=== PATIENT | male | born 1970 | race Caucasian/White ===

== ENCOUNTER → 2019-09-03 | Outpatient (REF) | payer MEDICAID ==
[2019-09-03 13:43] LABS: BASO # 0.1 10^3/uL (0.0-0.2); BASO % 1.3 % (0.0-1.0); EOS # 0.1 10^3/uL (0.0-0.5); EOS % 1.7 % (0.0-3.0); HEMATOCRIT 47.6 % (42.0-52.0); HEMOGLOBIN 15.8 g/dl (13.5-17.5); LYMPH % 21.2 % (24.0-44.0); MEAN CORPUSCULAR HEMOGLOBIN 32.2 pg (27.0-33.0); MEAN CORPUSCULAR HGB CONC 33.2 g/dl (32.0-36.5); MEAN CORPUSCULAR VOLUME 96.9 fl (80.0-96.0); MONO # 0.4 10^3/uL (0.0-0.8); MONO % 9.5 % (0.0-5.0); NEUTROPHILS # 3.1 10^3/uL (1.5-8.5); NEUTROPHILS % 66.1 % (36.0-66.0); PLATELET COUNT, AUTOMATED 199 10^3/uL (150-450); RED BLOOD COUNT 4.91 10^6/uL (4.30-6.10); WHITE BLOOD COUNT 4.6 10^3/uL (4.0-10.0)
[2019-09-03 14:00] LABS: ALBUMIN 3.4 GM/DL (3.2-5.2); ALT/SGPT 55 U/L (12-78); BILIRUBIN,TOTAL 0.6 MG/DL (0.2-1.0); BLOOD UREA NITROGEN 14 MG/DL (7-18); CALCIUM LEVEL 8.6 MG/DL (8.5-10.1); CARBON DIOXIDE LEVEL 27 MEQ/L (21-32); CHLORIDE LEVEL 109 MEQ/L (98-107); CHOLESTEROL LEVEL 182 MG/DL (<200); CHOLESTEROL RISK RATIO 2.716 (<5); CREATININE FOR GFR 0.89 MG/DL (0.70-1.30); FREE T4 0.81 NG/DL (0.76-1.46); GLOMERULAR FILTRATION RATE > 60.0 (>56); GLUCOSE, FASTING 91 MG/DL (70-100); HDL CHOLESTEROL 67 MG/DL (>40); LDL CHOLESTEROL 104 MG/DL (<100); NON-HDL-C 115 MG/DL; POTASSIUM SERUM 4.1 MEQ/L (3.5-5.1); SODIUM LEVEL 145 MEQ/L (136-145); TESTOSTERONE 1166 NG/DL (241-827); TOTAL 25(OH) VITAMIN D 20.7 NG/ML (30.0-100.0); TOTAL PROTEIN 6.5 GM/DL (6.4-8.2); TRIGLYCERIDES LEVEL 56 MG/DL (<150)
[2019-09-03 14:44] LABS: HEMOGLOBIN A1c 5.5 %
== END ==
LOC: M LAB REF 12:25
PROVIDERS: ATTEND Nurse Practitioner Family
DX: Z00.01 Encounter for general adult medical examination with abnormal findings (principal)

== ENCOUNTER 2019-10-03 11:26 | Day surgery (SDC) | payer MEDICAID ==
[~2019-10-03] VITALS: Ht 175.3 cm; Wt 544.8 kg
[~2019-10-03 11:26] MED LIST: NS 1,000 ML IV SCH
[2019-10-03] MEDS ORDERED: LIDOCAINE 2% INJ 100 MG/5 ML SDV (FOR ANES.) As Ordered ONE (13:09)
[2019-10-03] MEDS ORDERED: PROPOFOL 200 MG/20 ML VIAL As Ordered ONE (13:09)
--- NOTE | 2019-10-03 13:28 | ROOR ---
Patient Name: Mikel Cervantes Procedure Date: 10/03/2019 1:04 PM Date of : 1970 Age: 49 Room: [facility] Gender: Male Note Status: Finalized Procedure: Colonoscopy Indications: Screening for colorectal malignant neoplasm Providers: Oscar Grover Jr, MD Referring MD: Inge Turpin Requesting Provider: Medicines: Propofol per Anesthesia Complications: No immediate complications. Procedure: Pre-Anesthesia Assessment: - Prior to the procedure, a History and Physical was performed, and patient medications and allergies were reviewed. The patient is competent. The risks and benefits of the procedure and the sedation options and risks were discussed with the patient. All questions were answered and informed consent was obtained. Patient identification and proposed procedure were verified by the physician and the nurse in the pre-procedure area and in the procedure room. Mental Status Examination: alert and oriented. Airway Examination: normal oropharyngeal airway and neck mobility. Respiratory Examination: clear to auscultation. CV Examination: normal. ASA Grade Assessment: II - A patient with mild systemic disease. After reviewing the risks and benefits, the patient was deemed in satisfactory condition to undergo the procedure. The anesthesia plan was to use moderate sedation / analgesia (conscious sedation). Immediately prior to administration of medications, the patient was re-assessed for adequacy to receive sedatives. The heart rate, respiratory rate, oxygen saturations, blood pressure, adequacy of pulmonary ventilation, and response to care were monitored throughout the procedure. The physical status of the patient was re-assessed after the procedure. The Colonoscope was introduced through the anus and advanced to the cecum, identified by appendiceal orifice and ileocecal valve. The colonoscopy was performed without difficulty. The patient tolerated the procedure well. The quality of the bowel preparation was fair. Findings: The rectum, recto-sigmoid colon, sigmoid colon, descending colon, transverse colon, ascending colon, cecum and appendiceal orifice appeared normal. Non-bleeding internal hemorrhoids were found during endoscopy. The hemorrhoids were moderate. Impression: - Preparation of the colon was fair. - The rectum, recto-sigmoid colon, sigmoid colon, descending colon, transverse colon, ascending colon, cecum and appendiceal orifice are normal. - Non-bleeding internal hemorrhoids. - No specimens collected. Recommendation: - Discharge patient to home (ambulatory). - Repeat colonoscopy in 10 years for screening purposes. Oscar Grover MD Oscar Grover Jr, MD 10/03/2019 1:28:18 PM Electronically signed by Oscar Grover Jr, MD Number of Addenda: 0 Note Initiated On: 10/03/2019 1:04 PM Estimated Blood Loss: Estimated blood loss: none.
[2019-10-03 13:50] VITALS: BP 96/53
== END 2019-10-03 14:54 | disposition home or self-care (01) ==
LOC: M OPP 11:26
PROVIDERS: ATTEND Surgery
DX: Z12.11 Encounter for screening for malignant neoplasm of colon (principal); K64.8 Other hemorrhoids; Z98.84 Bariatric surgery status; M54.89 Other dorsalgia; R42 Dizziness and giddiness; G47.30 Sleep apnea, unspecified

== ENCOUNTER 2020-02-18 22:51 | Emergency (ER) | payer MEDICAID ==
[~2020-02-18] VITALS: Ht 175.3 cm; Wt 80.3 kg
[2020-02-18 22:52] VITALS: BP 126/78
[2020-02-18] MEDS ORDERED: LIDOCAINE 2% MDV 20 ML VIAL SC ONE (23:15)
[2020-02-18] MEDS ORDERED: ADACEL/BOOSTRIX VACCINE (DIPHTH/PERTUSS/ACELL/TETANUS)0.5ML SYR (90715) IM ONE (23:15)
[2020-02-19] MEDS ORDERED: KEFL500C17 PO (00:10)
[2020-02-19] MEDS ORDERED: CEPHALEXIN 500 MG CAP PO ONE (00:15)
--- NOTE | 2020-02-19 04:55 | REP ---
Clinical: Trauma. Laceration Technique: AP, lateral, bilateral oblique views left " index finger" Findings: Lacerations noted. No acute fracture or dislocation. No foreign body. Impression: Laceration. No fracture or foreign body. Electronically Signed by Jake Connors MD 02/19/2020 04:46 A
== END 2020-02-19 00:31 | disposition home or self-care (01) ==
LOC: M ED 22:51
DX: S61.215A Laceration without foreign body of left ring finger without damage to nail, initial encounter (principal); W31.2XXA Contact with powered woodworking and forming machines, initial encounter; Y92.009 Unspecified place in unspecified non-institutional (private) residence as the place of occurrence of the external cause; Y93.9 Activity, unspecified; Y99.9 Unspecified external cause status; Z98.84 Bariatric surgery status

== ENCOUNTER → 2020-09-15 | Outpatient (REF) | payer MEDICAID ==
[~2020-09-15] MED LIST changes: +KEFL500C17 PO; -NS 1,000 ML IV SCH
[2020-09-16 13:43] LABS: AMORPHOUS SEDIMENT SMALL (NEGATIVE); APPEARANCE, URINE TURBID (CLEAR); BACTERIA, URINE AUTO NEGATIVE (NEGATIVE); BILIRUBIN, URINE AUTO NEGATIVE (NEGATIVE); BLOOD, URINE BLOOD NEGATIVE (NEGATIVE); COLOR, URINE YELLOW (YELLOW); GLUCOSE, URINE (UA) AUTO NEGATIVE (NEGATIVE); KETONE, URINE AUTO NEGATIVE (NEGATIVE); LEUKOCYTE ESTERASE, URINE AUTO NEGATIVE (NEGATIVE); MUCUS, URINE SMALL (NEGATIVE); NITRITE, URINE AUTO NEGATIVE (NEGATIVE); PROTEIN, URINE AUTO NEGATIVE (NEGATIVE); RBC, URINE AUTO 0 /HPF (0-3); SPECIFIC GRAVITY URINE AUTO 1.025 (1.002-1.035); SQUAMOUS EPITHELIAL CELL UR AU 0 /HPF (0-6); UROBILINOGEN, URINE AUTO 0.2 mg/dL (0.0-2.0); WBC, URINE AUTO 0 /HPF (0-3)
== END ==
LOC: M LAB REF 11:18
PROVIDERS: ATTEND Nurse Practitioner Family
DX: N39.9 Disorder of urinary system, unspecified (principal)

== ENCOUNTER 2021-10-04 10:32 | Emergency (ER) | payer MEDICAID, OTHER ==
[~2021-10-04] VITALS: Ht 180.3 cm; Wt 79.5 kg
--- OUTSIDE RECORDS SUMMARY | 2021-10-04 10:39 | CCD ---
Author Author [facility] Organization [facility] Address Unknown Phone Unavailable Care Team Providers Care Aerial Photogrammetrist Name Role Phone Disha Saha MD Unavailable Unavailable Disha Saha MD Unavailable Unavailable Disha Saha MD Unavailable Unavailable Disha Saha MD Unavailable Unavailable Disha Saha MD Unavailable Unavailable Disah Saha MD Unavailable Unavailable Disha Saha MD Unavailable Unavailable Disha Saha MD Unavailable Unavailable Disha Saha MD Unavailable Unavailable Disha Saha MD Unavailable Unavailable Disha Saha MD Unavailable Unavailable Disha Saha MD Unavailable Unavailable Disha Saha MD Unavailable Unavailable Disha Saha MD Unavailable Unavailable Disha Saha MD Unavailable Unavailable Disha Saha MD Unavailable Unavailable Disha Saha MD Unavailable Unavailable Disha Saha MD Unavailable Unavailable Disha Saha MD Unavailable Unavailable Disha Saha MD Unavailable Unavailable Disha Saha MD Unavailable Unavailable Disha Saha MD Unavailable Unavailable Disha Saha MD Unavailable Unavailable Disha Saha MD Unavailable Unavailable Disha Saha MD Unavailable Unavailable Disha Saha MD Unavailable Unavailable Disha Saha MD Unavailable Unavailable Disha Saha MD Unavailable Unavailable Disha Saha MD Unavailable Unavailable Disha Saha MD Unavailable Unavailable Disha Saha MD Unavailable Unavailable Disha Saha MD Unavailable Unavailable Disha Saha MD Unavailable Unavailable Disha Saha MD Unavailable Unavailable Disha Saha MD Unavailable Unavailable Disha Saha MD Unavailable Unavailable Disha Saha MD Unavailable Unavailable Disha Saha MD Unavailable Unavailable Disha Saha MD Unavailable Unavailable Disha Saha MD Unavailable Unavailable Disha Saha MD Unavailable Unavailable Disha Saha MD Unavailable Unavailable Disha Saha MD Unavailable Unavailable Disha Saha MD Unavailable Unavailable Disha Saha MD Unavailable Unavailable Disha Saha MD Unavailable Unavailable Disha Saha MD Unavailable Unavailable Disha Saha MD Unavailable Unavailable Disha Saha MD Unavailable Unavailable Disha Saha MD Unavailable Unavailable Disha Saha MD Unavailable Unavailable Disha Saha MD Unavailable Unavailable Disha Saha MD Unavailable Unavailable Disha Saha MD Unavailable Unavailable Disha Saha MD Unavailable Unavailable Disha Saha MD Unavailable Unavailable Disha Saha MD Unavailable Unavailable Disha Saha MD Unavailable Unavailable Disha Saha MD Unavailable Unavailable Disha Saha MD Unavailable Unavailable Disha Saha MD Unavailable Unavailable Disha Saha MD Unavailable Unavailable Disha Saha MD Unavailable Unavailable Disha Saha MD Unavailable Unavailable Disha Saha MD Unavailable Unavailable Disha Saha MD Unavailable Unavailable Disha Saha MD Unavailable Unavailable Disha Saha MD Unavailable Unavailable Disha Saha MD Unavailable Unavailable Disha Saha MD Unavailable Unavailable Disha Saha MD Unavailable Unavailable Disha Saha MD Unavailable Unavailable Disha Saha MD Unavailable Unavailable Disha Saha MD Unavailable Unavailable Disha Saha MD Unavailable Unavailable Disha Saha MD Unavailable Unavailable Disha Saha MD Unavailable Unavailable Disha Saha MD Unavailable Unavailable Disha Saha MD Unavailable Unavailable Disha Saha MD Unavailable Unavailable Disha Saha MD Unavailable Unavailable Disha Saha MD Unavailable Unavailable Disha Saha MD Unavailable Unavailable Disha Saha MD Unavailable Unavailable Disha Saha MD Unavailable Unavailable Disha Saha MD Unavailable Unavailable Disha Saha MD Unavailable Unavailable Disha Saha MD Unavailable Unavailable Disha Saha MD Unavailable Unavailable Disha Saha MD Unavailable Unavailable Disha Saha MD Unavailable Unavailable Disha Saha MD Unavailable Unavailable Disha Saha MD Unavailable Unavailable Inge Turpin CAPACITY MANAGEMENT SPECIALIST Unavailable Unavailable Kary Chavez Unavailable [phone] Willam, A Lazara CAPACITY MANAGEMENT SPECIALIST Unavailable Unavailable Willam, A Lazara CAPACITY MANAGEMENT SPECIALIST Unavailable Unavailable Willam, A Lazara CAPACITY MANAGEMENT SPECIALIST Unavailable Unavailable Willam, A Lazara CAPACITY MANAGEMENT SPECIALIST Unavailable Unavailable Willam, A Lazara CAPACITY MANAGEMENT SPECIALIST Unavailable Unavailable Willam, A Lazara CAPACITY MANAGEMENT SPECIALIST Unavailable Unavailable Willam, A Lazara CAPACITY MANAGEMENT SPECIALIST Unavailable Unavailable Willam, A Lazara CAPACITY MANAGEMENT SPECIALIST Unavailable Unavailable Willam, A Lazara CAPACITY MANAGEMENT SPECIALIST Unavailable Unavailable Willam, A Lazara CAPACITY MANAGEMENT SPECIALIST Unavailable Unavailable Willam, A Lazara CAPACITY MANAGEMENT SPECIALIST Unavailable Unavailable Willam, A Lazara CAPACITY MANAGEMENT SPECIALIST Unavailable Unavailable Willam, A Lazara CAPACITY MANAGEMENT SPECIALIST Unavailable Unavailable Willam, A Lazara CAPACITY MANAGEMENT SPECIALIST Unavailable Unavailable Willam, A Lazara CAPACITY MANAGEMENT SPECIALIST Unavailable Unavailable Willam, A Lazara CAPACITY MANAGEMENT SPECIALIST Unavailable Unavailable Willam, A Lazara CAPACITY MANAGEMENT SPECIALIST Unavailable Unavailable Willam, A Lazara CAPACITY MANAGEMENT SPECIALIST Unavailable Unavailable Willam, A Lazara CAPACITY MANAGEMENT SPECIALIST Unavailable Unavailable Willam, A Lazara CAPACITY MANAGEMENT SPECIALIST Unavailable Unavailable Willam, A Lazara CAPACITY MANAGEMENT SPECIALIST Unavailable Unavailable Willam, A Lazara CAPACITY MANAGEMENT SPECIALIST Unavailable Unavailable Willam, A Lazara CAPACITY MANAGEMENT SPECIALIST Unavailable Unavailable Willam, A Lazara CAPACITY MANAGEMENT SPECIALIST Unavailable Unavailable Willam, A Lazara CAPACITY MANAGEMENT SPECIALIST Unavailable Unavailable Willam, A Lazara CAPACITY MANAGEMENT SPECIALIST Unavailable Unavailable Willam, A Lazara CAPACITY MANAGEMENT SPECIALIST Unavailable Unavailable Willam, A Lazara CAPACITY MANAGEMENT SPECIALIST Unavailable Unavailable Willam, A Lazara CAPACITY MANAGEMENT SPECIALIST Unavailable Unavailable Willam, A Lazara CAPACITY MANAGEMENT SPECIALIST Unavailable Unavailable Willam, A Lazara CAPACITY MANAGEMENT SPECIALIST Unavailable Unavailable Joon Simmons MD, MD Unavailable Unavailable Joon Simmons MD, MD Unavailable Unavailable Joon Simmons MD, MD Unavailable Unavailable Zackary TORO, Sonal Unavailable Unavailable Scordo, M Sonia PA Unavailable Unavailable Scordo, M Sonia PA Unavailable Unavailable Scordo, M Sonia PA Unavailable Unavailable Scordo, M Sonia PA Unavailable Unavailable Scordo, M Sonia PA Unavailable Unavailable Scordo, M Sonia PA Unavailable Unavailable Scordo, M Sonia PA Unavailable Unavailable Scordo, M Sonia PA Unavailable Unavailable Scordo, M Sonia PA Unavailable Unavailable Scordo, M Sonia PA Unavailable Unavailable Scordo, M Sonia PA Unavailable Unavailable Scordo, M Sonia PA Unavailable Unavailable Scordo, M Sonia PA Unavailable Unavailable Scordo, M Sonia PA Unavailable Unavailable Scordo, M Sonia PA Unavailable Unavailable Scordo, M Sonia PA Unavailable Unavailable Scordo, M Sonia PA Unavailable Unavailable Scordo, M Sonia PA Unavailable Unavailable Scordo, M Sonia PA Unavailable Unavailable Scordo, M Sonia PA Unavailable Unavailable Scordo, M Sonia PA Unavailable Unavailable Scordo, M Sonia PA Unavailable Unavailable Scordo, M Sonia PA Unavailable Unavailable Scordo, M Sonia PA Unavailable Unavailable Scordo, M Sonia PA Unavailable Unavailable Scordo, M Sonia PA Unavailable Unavailable Scordo, M Sonia PA Unavailable Unavailable Scordo, M Sonia PA Unavailable Unavailable Scordo, M Sonia PA Unavailable Unavailable Scordo, M Sonia PA Unavailable Unavailable Scordo, M Sonia PA Unavailable Unavailable Scordo, M Sonia PA Unavailable Unavailable Scordo, M Sonia PA Unavailable Unavailable Scordo, M Sonia PA Unavailable Unavailable Scordo, M Sonia PA Unavailable Unavailable Scordo, M Sonia PA Unavailable Unavailable Scordo, M Sonia PA Unavailable Unavailable Scordo, M Sonia PA Unavailable Unavailable Scordo, M Sonia PA Unavailable Unavailable Scordo, M Sonia PA Unavailable Unavailable Scordo, M Sonia PA Unavailable Unavailable Scordo, M Sonia PA Unavailable Unavailable Scordo, M Sonia PA Unavailable Unavailable Scordo, M Sonia PA Unavailable Unavailable Scordo, M Sonia PA Unavailable Unavailable Scordo, M Sonia PA Unavailable Unavailable Scordo, M Sonia PA Unavailable Unavailable Re-disclosure Warning The records that you are about to access may contain information from federally-assisted alcohol or drug abuse programs. If such information is present, then the following federally mandated warning applies: This information has been disclosed to you from records protected by federal confidentiality rules (42 CFR part 2). The federal rules prohibit you from making any further disclosure of this information unless further disclosure is expressly permitted by the written consent of the person to whom it pertains or as otherwise permitted by 42 CFR part 2. A general authorization for the release of medical or other information is NOT sufficient for this purpose. The Federal rules restrict any use of the information to criminally investigate or prosecute any alcohol or drug abuse patient.The records that you are about to access may contain highly sensitive health information, the redisclosure of which is protected by Article 27-F of the [facility] Public Health law. If you continue you may have access to information: Regarding HIV / AIDS; Provided by facilities licensed or operated by the [facility] Office of Mental Health; or Provided by the [facility] Office for People With Developmental Disabilities. If such information is present, then the following [facility] mandated warning applies: This information has been disclosed to you from confidential records which are protected by state law. State law prohibits you from making any further disclosure of this information without the specific written consent of the person to whom it pertains, or as otherwise permitted by law. Any unauthorized further disclosure in violation of state law may result in a fine or [place] health [facility] facility sentence or both. A general authorization for the release of medical or other information is NOT sufficient authorization for further disc losure. Family History Family Member Name Family Member Gender Family Member Status Date o f Status Description Data Source(s) Unknown Unknown Problem [facility] ([facility] [employer] [facility] [place]) Encounters Encounter Providers Location Date Indications Data Source(s ) MICHELLE Amador-: [address] [place] [address], Ph. Attender: Lazara MARTINEZ [facility] Medical 03/31/2021 12:00:00 AM EDT [facility]) Sonia Khan PA-C: [address] [place] [address], Ph. Attender: Sonia [facility] Medical 03/17/2021 12:00:00 AM EDT [facility]) Sonia Khan PA-C: [address] [place] [address], Ph. Attender: Sonia [facility] Medical 03/17/2021 12:00:00 AM EDT [facility]) Alonso Saha MD: [address] [place] [address], Ph. Attender: Alonso Saha MD [facility] Medical 02/25/2021 12:00:00 AM EDT [facility] ([facility]) Alonso Saha MD: [address] [place] [address], Ph. Attender: Alonso Saha MD [facility] Medical 02/25/2021 12:00:00 AM EDT [facility] ([facility]) Alonso Saha MD: [address] [place] [address], Ph. Attender: Alonso Saha MD [facility] Medical 02/25/2021 12:00:00 AM EDT [facility] ([facility]) Kary Chavez, [facility] [place] [address] [place] [address], Ph. Attender: Kary Gamezlindsey [facility] Medical 11/17/2020 12:00:00 AM EST [facility] ([facility]) Kary Chavez, [facility]: [address] [place] [address], Ph. Attender: Kary Chavez [facility] Medical 11/17/2020 12:00:00 AM EST [facility] ([facility]) Kary Chavez, [facility] [place]: [address] [place] [address], Ph. Attender: Kary Chavez [facility] Medical 11/17/2020 12:00:00 AM EST [facility] ([facility]) Kary Chavez, [facility] [place]: [address] [place] [address], Ph. Attender: Kary Chavez [facility] Medical 11/17/2020 12:00:00 AM EST [facility] ([facility]) Recurring Patient Attender: Sonal Raymundo MDReferrer: Joon galicia MD 11/13/2020 02:30:14 PM EST [facility] [place] Sonia Khan PA-C: [address], [facility] [place] [address], Ph. Attender: Sonia [facility] Medical 11/06/2020 12:00:00 AM EST [facility] ([facility]) Sonia Khan PA-C: [address], [facility] [facility] [place] [address], Ph. Attender: Sonia [facility] Medical 11/06/2020 12:00:00 AM EST [facility] ([facility]) Sonia Khan PA-C: [address], [facility] [place] [address], Ph. Attender: Sonia [facility] Medical 11/06/2020 12:00:00 AM EST [facility] ([facility]) Sonia Khan PA-C: [address], [facility] [place] [address], Ph. Attender: Sonia [facility] Medical 11/06/2020 12:00:00 AM EST [facility] ([facility]) Sonia Khan PA-C: [address], [facility] [place] [address], Ph. Attender: Sonia [facility] Medical 11/06/2020 12:00:00 AM EST [facility] ([facility]) Kary Chavez LMSW: [address], [place] [address], Ph. Attender: Kary Chavez [facility] Medical 10/29/2020 12:00:00 AM EST [facility] ([facility]) Kary Chavez LMSW: [address], [place] [address], Ph. Attender: Kary Chavez [facility] Medical 10/29/2020 12:00:00 AM EST [facility] ([facility]) Kary Chavez, [facility] [place] [place]: [address] [place] [address], Ph. Attender: Kary Chavez [facility] Medical 10/29/2020 12:00:00 AM EST [facility] ([facility]) Kary Chavez, [facility] [place]: [address] [place] [address], Ph. Attender: Kary Chavez [facility] Medical 10/29/2020 12:00:00 AM EST [facility] ([facility]) Kary Chavez, [facility]: [address] [place] [address], Ph. Attender: Kary Gamezlindsey [facility] Medical 10/29/2020 12:00:00 AM EST [facility] ([facility]) Kary Chavez, [facility]: [address] [place] [address], Ph. Attender: Kary Chavez [facility] Medical 10/29/2020 12:00:00 AM EST [facility] ([facility]) Kary Gamezlindsey, [facility] [place] [place]: [address] [place] [address], Ph. Attender: Kary Chavez [facility] Medical 10/29/2020 12:00:00 AM EST [facility] ([facility]) Kary Gamezlindsey, [facility]: [address] [place] [address], Ph. Attender: Kary Gamezlindsey [facility] Medical 10/14/2020 12:00:00 AM EST [facility] ([facility]) Kary Chavez [facility]: [address], [place] [address], Ph. Attender: Kary Chavez [facility] Medical 10/14/2020 12:00:00 AM EST [facility] ([facility]) Kary Chavez, [facility]: [address], [place] [address], Ph. Attender: Kary Chavez [facility] Medical 10/14/2020 12:00:00 AM EST [facility] ([facility]) Kary Chavez, [facility]: [address], [place] [address], Ph. Attender: Kary Chavez [facility] Medical 10/14/2020 12:00:00 AM EST [facility] ([facility]) [facility] [address], [place] [address], Ph. Attender: Kary Chavez [facility] Medical 10/14/2020 12:00:00 AM EST [facility] ([facility]) Kary Chavez, [facility]: [address], [place] [address], Ph. Attender: Kary Chavez [facility] Medical 10/14/2020 12:00:00 AM EST [facility] ([facility]) Kary Chavez, [facility]: [address], [place] [address], Ph. Attender: Kary Chavez [facility] Medical 10/14/2020 12:00:00 AM EST [facility] ([facility]) Kary Chavez, [facility]: [address], [place] [address], Ph. Attender: Kary Chavez [facility] Medical 10/14/2020 12:00:00 AM EST [facility] ([facility]) Outpatient [address] [place] [address] 10/06/2020 12:00:00 AM EST eCW1 ([facility]) Unknown [address] [place] [address] 10/06/2020 12:00:00 AM EST eCW1 ([facility]) MILENA Amador: [address], [place] [address], Ph. Attender: Lazara Quarles [facility] Medical 09/30/2020 12:00:00 AM EST [facility] ([facility]) MILENA Amador: [address], [place] [address], Ph. Attender: Lazara Quarles [facility] Medical 09/30/2020 12:00:00 AM EST [facility] ([facility]) MILENA Amador: [address], [place] [address], Ph. Attender: Lazara Quarles [facility] Medical 09/30/2020 12:00:00 AM EST [facility] ([facility]) MILENA Amador: [address], [place] [address], Ph. Attender: Lazara Quarles [facility] Medical 09/30/2020 12:00:00 AM EST [facility] ([facility]) MILENA Amador: [address], [place] [address], Ph. Attender: Lazara Quarles [facility] Medical 09/30/2020 12:00:00 AM EST [facility] ([facility]) Lazara Quarles [facility]: [address], [place] [address], Ph. Attender: Lazara Quarles [facility] Medical 09/30/2020 12:00:00 AM EST [facility] ([facility]) Lazara Quarles [facility]: [address], [place] [address], Ph. Attender: Lazara Quarles [facility] Medical 09/30/2020 12:00:00 AM EST [facility] ([facility]) Lazara Quarles [facility]: [address], [place] [address], Ph. Attender: Lazara Quarles [facility] Medical 09/30/2020 12:00:00 AM EST [facility] ([facility]) Lazara Quarles [facility]: [address], [place] [address], Ph. Attender: Lazara Quarles [facility] Medical 09/30/2020 12:00:00 AM EST [facility] ([facility]) Kary Chavez LMSW: [address] [place] [address], Ph. Attender: Kary Chavez [facility] Medical 09/28/2020 12:00:00 AM EST [facility] ([facility]) Kary Chavez LMSW: [address], [place] [address], Ph. Attender: Kary Chavez [facility] Medical 09/28/2020 12:00:00 AM EST [facility] ([facility]) Kary Chavez LMSW: [address], [place] [address], Ph. Attender: Kary Chavez [facility] Medical 09/28/2020 12:00:00 AM EST [facility] ([facility]) Kary Chavez, [facility]: [address] [place] [address], Ph. Attender: Kary Chavez [facility] Medical 09/28/2020 12:00:00 AM EST [facility] ([facility]) Kary Chavez, [facility]: [address] [place] [address], Ph. Attender: Kary Chavez [facility] Medical 09/28/2020 12:00:00 AM EST [facility] ([facility]) Kary Chavez, [facility]: [address] [place] [address], Ph. Attender: Kary Chavez [facility] Medical 09/28/2020 12:00:00 AM EST [facility] ([facility]) Kary Chavez, [facility]: [address] [place] [address], Ph. Attender: Kary Chavez [facility] Medical 09/28/2020 12:00:00 AM EST [facility] ([facility]) Kary Chavez, [facility]: [address] [place] [address], Ph. Attender: Kary Chavez [facility] Medical 09/28/2020 12:00:00 AM EST [facility] ([facility]) Kary Chavez, [facility]: [address] [place] [address], Ph. Attender: Kary Chavez [facility] Medical 09/28/2020 12:00:00 AM EST [facility] ([facility]) MILENA AmadorBC: [address], [place] [address], Ph. Attender: Lazara Quarles [facility] Medical 09/15/2020 12:00:00 AM EDT [place] ([facility]) Lazara Quarles [facility]: [address], [place] [address], Ph. Attender: Lazara Quarles [facility] Medical 09/15/2020 12:00:00 AM EDT [facility] ([facility]) Lazara Quarles [facility]: [address], [place] [address], Ph. Attender: Lazara Quarles [facility] Medical 09/15/2020 12:00:00 AM EDT [place] ([facility]) Lazara Quarles [facility]: [address], [place] [address], Ph. Attender: Lazara Quarles [facility] Medical 09/15/2020 12:00:00 AM EDT [place] ([facility]) Lazara Quarles [facility]: [address], [place] [address], Ph. Attender: Lazara Quarles [facility] Medical 09/15/2020 12:00:00 AM EDT [facility] ([facility]) Lazara Quarles [facility]: [address], [place] [address], Ph. Attender: Lazara Quarles [facility] Medical 09/15/2020 12:00:00 AM EDT [facility] ([facility]) Lazara Quarles [facility]: [address], [place] [address], Ph. Attender: Lazara Quarles [facility] Medical 09/15/2020 12:00:00 AM EDT [facility]) [facility] [address], [place] [address], Ph. Attender: Lazara Quarles [facility] Medical 09/15/2020 12:00:00 AM EDT [facility]) [facility] [address], [place] [address], Ph. Attender: Lazara Quarles [facility] Medical 09/15/2020 12:00:00 AM EDT [facility]) Lazara Quarles [facility]: [address], [place] [address], Ph. Attender: Lazara Quarles [facility] Medical 09/15/2020 12:00:00 AM EDT [facility]) [facility]/2020 12:02:43 AM EDT [facility] Out[facility]: [facility] 08/18/2020 11:29:01 AM EDT [facility] Medications Medication Brand Name Start Date Product Form Dose Route Admi nistrative Instructions Pharmacy Instructions Status Indications Reaction Description Data Source(s) 17 gram/dose 11/07/2020 12:00:00 AM EST powder 238 MIX 1 CAPFUL WITH LIQUID THREE TIMES A DAY UNTIL RELIEVED OF CONSTIPATION MIX 1 CAPFUL WITH LIQUID THREE TIMES A DAY UNTIL RELIEVED OF CONSTIPATION SOLD: 11/07/2020 [facility] 100 mg 11/07/2020 12:00:00 AM EST capsule 30 TAKE ONE CAPSULE BY MOUTH TWICE A DAY TAKE ONE CAPSULE BY MOUTH TWICE A DAY SOLD: 11/07/2020 [facility] 500 mg 09/15/2020 12:00:00 AM EDT tablet 14 TAKE ONE TABLET BY MOUTH EVERY 12 HOURS FOR 7 DAYS TAKE ONE TABLET BY MOUTH EVERY 12 HOURS FOR 7 DAYS [facility] Cephalexin 500 MG Oral Capsule cephalexin 500 mg capsu le cephalexin 500 mg capsule completed cephalexin 500 MG Oral Capsule [place] ([facility]) POLYETHYLENE GLYCOL 3350 142 MG/ML Oral Solution polyethylene glycol 3350 17 gram/dose oral powder MIX 1 CAPFUL WITH LIQUID THREE TIMES A DAY UNTIL RELIEVED OF CONSTIPATION polyethylene glycol 3350 17 gram/dose or al powder MIX 1 CAPFUL WITH LIQUID THREE TIMES A DAY UNTIL RELIEVED OF CONSTIPATION completed polyethylene glycol 3350 67866 M G Powder for Oral Solution [place] ([facility]) Docusate Sodium 100 MG Oral Capsule [DOK ] DOK 100 mg capsule TAKE ONE CAPSULE BY MOUTH TWICE A DAY DOK 100 mg capsule TAKE ONE CAPSULE BY MOUTH TWICE A DAY completed docusate sodium 100 MG Oral Capsule [DOK] [place] ([facility]) Ciprofloxacin 500 MG Oral Tablet ciprofloxacin 500 mg tablet ciprofloxacin 500 mg tablet completed ciprofloxaci n 500 MG Oral Tablet [place] ([facility]) Cephalexin 500 MG Oral Capsule cephalexin 500 mg capsu le cephalexin 500 mg capsule completed cephalexin 500 MG Oral Capsule [place] ([facility]) Cephalexin 500 MG Oral Capsule cephalexin 500 mg capsu le cephalexin 500 mg capsule completed cephalexin 500 MG Oral Capsule [place] ([facility]) Cephalexin 500 MG Oral Capsule cephalexin 500 mg capsu le cephalexin 500 mg capsule completed cephalexin 500 MG Oral Capsule [place] ([facility]) Cephalexin 500 MG Oral Capsule cephalexin 500 mg capsu le cephalexin 500 mg capsule completed cephalexin 500 MG Oral Capsule [place] ([facility]) Ciprofloxacin 500 MG Oral Tablet ciprofloxacin 500 mg tablet ciprofloxacin 500 mg tablet completed ciprofloxaci n 500 MG Oral Tablet [place] ([facility]) Ciprofloxacin 500 MG Oral Tablet ciprofloxacin 500 mg tablet ciprofloxacin 500 mg tablet completed ciprofloxaci n 500 MG Oral Tablet [place] ([facility]) Ciprofloxacin 500 MG Oral Tablet ciprofloxacin 500 mg tablet ciprofloxacin 500 mg tablet completed ciprofloxaci n 500 MG Oral Tablet [place] ([facility]) Ciprofloxacin 500 MG Oral Tablet ciprofloxacin 500 mg tablet ciprofloxacin 500 mg tablet completed ciprofloxaci n 500 MG Oral Tablet [facility] ([facility]) Cephalexin 500 MG Oral Capsule cephalexin 500 mg capsu le cephalexin 500 mg capsule completed cephalexin 500 MG Oral Capsule [facility] ([facility]) Ciprofloxacin 500 MG Oral Tablet ciprofloxacin 500 mg tablet ciprofloxacin 500 mg tablet completed ciprofloxaci n 500 MG Oral Tablet [facility] ([facility]) Cephalexin 500 MG Oral Capsule cephalexin 500 mg capsu le cephalexin 500 mg capsule completed cephalexin 500 MG Oral Capsule [place] ([facility]) Ciprofloxacin 500 MG Oral Tablet ciprofloxacin 500 mg tablet ciprofloxacin 500 mg tablet completed ciprofloxaci n 500 MG Oral Tablet [place] ([facility]) Cephalexin 500 MG Oral Capsule cephalexin 500 mg capsu le cephalexin 500 mg capsule completed cephalexin 500 MG Oral Capsule [facility]) Ciprofloxacin 500 MG Oral Tablet ciprofloxacin 500 mg tablet ciprofloxacin 500 mg tablet completed ciprofloxaci n 500 MG Oral Tablet [facility]) Cephalexin 500 MG Oral Capsule cephalexin 500 mg capsu le cephalexin 500 mg capsule completed cephalexin 500 MG Oral Capsule [place] ([facility]) Cephalexin 500 MG Oral Capsule cephalexin 500 mg capsu le cephalexin 500 mg capsule completed cephalexin 500 MG Oral Capsule [place] ([facility]) Ciprofloxacin 500 MG Oral Tablet ciprofloxacin 500 mg tablet ciprofloxacin 500 mg tablet completed ciprofloxaci n 500 MG Oral Tablet [place] ([facility]) Insurance Providers Payer name Policy type / Coverage type Policy ID Covered republican ID Covered republican's relationship to roca Policy Roca Plan Information MEDICARE 4 [id number] [place] Medig[place] B [id number] Family Dependent BC EXC PLANS 1 [id number] EXCELLUS BCBS [id number] Spo [id number] Medicaid P [id number] S [id number] Medicaid P [id number] S [id number] SELF PAY 2 UNAVAILABLE 1 UNAVAILA BLE Total Care Commercial [id number] Self MEDICAID [id number] SP [id number] [place] Medig[place] B [id number] Family Dependent [place] Medig[place] Part B [id number] Family Dependent EMED[place] [id number] SP [id number] SELF PAY 5 UNAVAILABLE 1 UNAVAILA BLE Problems, Conditions, and Diagnoses Code Display Name Description Problem Type Effective Dates Data Source(s) 03988811 Posttraumatic stress disorder Posttraumatic Stress Dis order Problem 11/17/2020 12:00:00 AM EST [facility] ([facility]) [id number] Posttraumatic stress disorder Posttraumatic Stress Dis order Problem 11/17/2020 12:00:00 AM EST [facility] ([facility]) [id number] Posttraumatic stress disorder Posttraumatic Stress Dis order Problem 11/17/2020 12:00:00 AM EST [facility] ([facility]) [id number] Posttraumatic stress disorder Posttraumatic Stress Dis order Problem 11/17/2020 12:00:00 AM EST [facility] ([facility]) [id number] Stress and adjustment reaction Stress and Adjustment R eaction Problem 10/15/2020 12:00:00 AM EST [facility] ([facility]) [id number] Stress and adjustment reaction Stress and Adjustment R eaction Problem 10/15/2020 12:00:00 AM EST [facility] ([facility]) [id number] Stress and adjustment reaction Stress and Adjustment R eaction Problem 10/15/2020 12:00:00 AM EST [facility] ([facility]) [id number] Stress and adjustment reaction Stress and Adjustment R eaction Problem 10/15/2020 12:00:00 AM EST [facility] ([facility]) [id number] Stress and adjustment reaction Stress and Adjustment R eaction Problem 10/15/2020 12:00:00 AM EST [facility] ([facility]) [id number] Stress and adjustment reaction Stress and Adjustment R eaction Problem 10/15/2020 12:00:00 AM EST [facility] ([facility]) [id number] Stress and adjustment reaction Stress and Adjustment R eaction Problem 10/15/2020 12:00:00 AM EST [facility] ([facility]) [id number] Stress and adjustment reaction Stress and Adjustment R eaction Problem 10/15/2020 12:00:00 AM EST [facility] ([facility]) N48.30 [id number] Painful penile erection Problem 10/06/2020 1 2:00:00 AM EST eCW1 ([facility]) [id number] Laceration of blood vessel of finger Lac eration of Blood Vessel of Finger Problem 02/28/2020 12:00:00 AM EDT - 11/06/2020 12:00:00 AM EST [facility] ([facility]) [id number] Laceration of blood vessel of finger Lac eration of Blood Vessel of Finger Problem 02/28/2020 12:00:00 AM EDT - 11/06/2020 12:00:00 AM EST [facility] ([facility]) [id number] Laceration of blood vessel of finger Lac eration of Blood Vessel of Finger Problem 02/28/2020 12:00:00 AM EDT - 11/06/2020 12:00:00 AM EST [facility] ([facility]) [id number] Laceration of blood vessel of finger Lac eration of Blood Vessel of Finger Problem 02/28/2020 12:00:00 AM EDT - 11/06/2020 12:00:00 AM EST [facility] ([facility]) [id number] Laceration of blood vessel of finger Lac eration of Blood Vessel of Finger Problem 02/28/2020 12:00:00 AM EDT - 11/06/2020 12:00:00 AM EST [facility] ([facility]) [id number] [facility] present [facility] Problem 10/18/2019 12:00:00 AM EST - 11/06/2020 12:00:00 AM EST [facility] ([facility]) [id number] Dental worship present [facility] Problem 10/18/2019 12:00:00 AM EST - 11/06/2020 12:00:00 AM EST [facility] ([facility]) [id number] Dental worship present [facility] Problem 10/18/2019 12:00:00 AM EST - 11/06/2020 12:00:00 AM EST [facility] ([facility]) [id number] Dental worship present [facility] Problem 10/18/2019 12:00:00 AM EST - 11/06/2020 12:00:00 AM EST [facility] ([facility]) [id number] Dental worship present [facility] Problem 10/18/2019 12:00:00 AM EST - 11/06/2020 12:00:00 AM EST [facility] ([facility]) [id number] Procedure by method Procedure by Method Problem 0 08/06/2019 12:00:00 AM EDT - 11/06/2020 12:00:00 AM EST [facility] ([facility]) [id number] Procedure by method Procedure by Method Problem 0 08/06/2019 12:00:00 AM EDT - 11/06/2020 12:00:00 AM EST [facility] ([facility]) [id number] Procedure by method Procedure by Method Problem 0 08/06/2019 12:00:00 AM EDT - 11/06/2020 12:00:00 AM EST [facility] ([facility]) [id number] Procedure by method Procedure by Method Problem 0 08/06/2019 12:00:00 AM EDT - 11/06/2020 12:00:00 AM EST [facility] ([facility]) [id number] Procedure by method Procedure by Method Problem 0 08/06/2019 12:00:00 AM EDT - 11/06/2020 12:00:00 AM EST [facility] ([facility]) Surgeries/Procedures No Information Results ID Date Data Source [id number] 03/17/2021 09:21:00 AM EDT [place] ([facility]) Name Value Range Interpretation Code Description Data Analia rce(s) Supporting Document(s) sars-cov-2 negative negative Sars-cov-2 [place] ([facility]) ID Date Data Source [id number] 03/17/2021 09:17:00 AM EDT [facility] Name Value Range Interpretation Code Description Data Analia rce(s) Supporting Document(s) SARS coronavirus 2 RdRp gene [Presence] in Respiratory specimen by LISA with probe detection Not detected [facility] This lab was ordered by [facility] and reported by [facility]. ID Date Data Source [id number] 02/25/2021 10:45:00 AM EDT [place] ([facility]) Name Value Range Interpretation Code Description Data Analia rce(s) Supporting Document(s) sars-cov-2 positive negative Abnormal (applies to non-num [facility] results) Sars-cov-2 [place] ([facility]) ID Date Data Source [id number] 02/25/2021 10:45:00 AM EDT [facility] ([facility]) Name Value Range Interpretation Code Description Data Analia rce(s) Supporting Document(s) sars-cov-2 positive negative Abnormal (applies to non-num [place] results) Sars-cov-2 [facility]) ID Date Data Source [id number] 02/25/2021 10:45:00 AM EDT [facility] ([facility]) Name Value Range Interpretation Code Description Data Analia rce(s) Supporting Document(s) sars-cov-2 positive negative Abnormal (applies to non-num [place] results) Sars-cov-2 [place] ([facility]) ID Date Data Source [id number] 02/25/2021 10:42:00 AM EDT [facility] Name Value Range Interpretation Code Description Data Analia rce(s) Supporting Document(s) SARS coronavirus 2 RdRp gene [Presence] in Respiratory specimen by LISA with probe detection Detected [facility] This lab was ordered by [facility] and reported by [facility]. ID Date Data Source [id number] 09/15/2020 06:00:00 PM EDT [facility]) Name Value Range Interpretation Code Description Data Analia rce(s) Supporting Document(s) ID Date Data Source [id number] 09/15/2020 06:00:00 PM EDT [place] ([facility]) Name Value Range Interpretation Code Description Data Analia rce(s) Supporting Document(s) appearance, urine turbid clear Above high normal Appearance, Urine [place] ([facility]) color, urine yellow yellow Color, Urine [facility] (No [facility]) pH,urine 5.0 units 5.0-9.0 pH,urine [place] ([facility]) glucose, urine (UA) auto negative negative Glucose, Ur ine (UA) Auto [facility] ([facility]) specific gravity urine auto 1.002-1.035 Specifi c [place] Urine Auto [facility] ([facility]) protein, urine auto negative negative Protein, Urine A uto [facility] ([facility]) nitrite, urine auto negative negative Nitrite, Urine A meo [facility] ([facility]) bilirubin, urine auto negative negative Bilirubin, Uri ne Auto [facility] ([facility]) ketone, urine auto negative negative Ketone, Urine Aut o [facility] ([facility]) urobilinogen, urine auto 0.2 mg/dL 0.0-2.0 Urobilinoge n, Urine Auto [facility] ([facility]) WBC, urine auto 0 /hpf 0-3 WBC, Urine Auto [facility] ([facility]) blood, urine blood negative negative Blood, Urine Bloo d [facility] ([facility]) leukocyte esterase, urine auto negative negative Leukocyte Esterase, Urine Auto [facility] ([facility]) RBC, urine auto 0 /hpf 0-3 RBC, Urine Auto [facility] ([facility]) squamous epithelial cell ur AU 0 /hpf 0-6 Squam ous Epithelial Cell Ur AU [facility] ([facility]) mucus, urine small negative Mucus, Urine [facility] (No [facility]) bacteria, urine auto negative negative Bacteria, Urine Auto [facility] ([facility]) yeast like cell urine auto large none Above high nor mal Yeast like Cell Urine Auto [facility] ([facility]) hyaline cast, urine auto 0 /lpf 0-1 Hyaline Shaheed t, Urine Auto [facility] ([facility]) amorphous sediment small negative Above high normal Amorphous Sediment [facility] ([facility]) ID Date Data Source [id number] 09/15/2020 06:00:00 PM EDT [place] ([facility]) Name Value Range Interpretation Code Description Data Analia rce(s) Supporting Document(s) ID Date Data Source [id number] 09/15/2020 06:00:00 PM EDT [place] ([facility]) Name Value Range Interpretation Code Description Data Analia rce(s) Supporting Document(s) appearance, urine turbid clear Above high normal Appearance, Urine [facility] ([facility]) pH,urine 5.0 units 5.0-9.0 pH,urine [facility] ([facility]) color, urine yellow yellow Color, Urine [facility] (No [facility]) protein, urine auto negative negative Protein, Urine A uto [facility] ([facility]) specific gravity urine auto 1.002-1.035 Specifi c [place] Urine Auto [facility] ([facility]) glucose, urine (UA) auto negative negative Glucose, Ur ine (UA) Auto [facility] ([facility]) ketone, urine auto negative negative Ketone, Urine Aut o [facility] ([facility]) urobilinogen, urine auto 0.2 mg/dL 0.0-2.0 Urobilinoge n, Urine Auto [facility] ([facility]) bilirubin, urine auto negative negative Bilirubin, Uri ne Auto [facility] ([facility]) nitrite, urine auto negative negative Nitrite, Urine A uto [facility] ([facility]) blood, urine blood negative negative Blood, Urine Bloo d [facility] ([facility]) leukocyte esterase, urine auto negative negative Leukocyte Esterase, Urine Auto [facility] ([facility]) WBC, urine auto 0 /hpf 0-3 WBC, Urine Auto ATHE NA ([facility]) RBC, urine auto 0 /hpf 0-3 RBC, Urine Auto ATHE NA ([facility]) squamous epithelial cell ur AU 0 /hpf 0-6 Squam ous Epithelial Cell Ur AU [facility] ([facility]) yeast like cell urine auto large none Above high nor mal Yeast like Cell Urine Auto [facility] ([facility]) bacteria, urine auto negative negative Bacteria, Urine Auto [facility] ([facility]) mucus, urine small negative Mucus, Urine [facility] ([facility]) hyaline cast, urine auto 0 /lpf 0-1 Hyaline Shaheed t, Urine Auto [facility] ([facility]) amorphous sediment small negative Above high normal Amorphous Sediment [facility] ([facility]) ID Date Data Source [id number] 09/15/2020 06:00:00 PM EDT [facility] ([facility]) Name Value Range Interpretation Code Description Data Analia rce(s) Supporting Document(s) ID Date Data Source [id number] 09/15/2020 06:00:00 PM EDT [facility] ([facility]) Name Value Range Interpretation Code Description Data Analia rce(s) Supporting Document(s) appearance, urine turbid clear Above high normal Appearance, Urine [facility] ([facility]) color, urine yellow yellow Color, [facility] specific gravity urine auto 1.002-1.035 Specifi c [place] Urine Auto [facility] ([facility]) protein, urine auto negative negative Protein, Urine A uto [facility] ([facility]) pH,urine 5.0 units 5.0-9.0 pH,urine [facility] ([facility]) ketone, urine auto negative negative Ketone, Urine Aut o [facility] ([facility]) glucose, urine (UA) auto negative negative Glucose, Ur ine (UA) Auto [facility] ([facility]) urobilinogen, urine auto 0.2 mg/dL 0.0-2.0 Urobilinoge n, Urine Auto [facility] ([facility]) bilirubin, urine auto negative negative Bilirubin, Uri ne Auto [facility] ([facility]) WBC, urine auto 0 /hpf 0-3 WBC, Urine Auto ATHE NA ([facility]) nitrite, urine auto negative negative Nitrite, Urine A uto [facility] ([facility]) leukocyte esterase, urine auto negative negative Leukocyte Esterase, Urine Auto [facility] ([facility]) blood, urine blood negative negative Blood, Urine Bloo d [facility] ([facility]) bacteria, urine auto negative negative Bacteria, Urine Auto [facility] ([facility]) RBC, urine auto 0 /hpf 0-3 RBC, Urine Auto ATHE NA ([facility]) yeast like cell urine auto large none Above high nor mal Yeast like Cell Urine Auto [facility] ([facility]) mucus, urine small negative Mucus, Urine [facility] ([facility]) squamous epithelial cell ur AU 0 /hpf 0-6 Squam ous Epithelial Cell Ur AU [facility] ([facility]) amorphous sediment small negative Above high normal Amorphous Sediment [facility] ([facility]) hyaline cast, urine auto 0 /lpf 0-1 Hyaline Shaheed t, Urine Auto [facility] ([facility]) ID Date Data Source [id number] 09/15/2020 06:00:00 PM EDT [place] ([facility]) Name Value Range Interpretation Code Description Data Analia rce(s) Supporting Document(s) ID Date Data Source [id number] 09/15/2020 06:00:00 PM EDT [place] ([facility]) Name Value Range Interpretation Code Description Data Analia rce(s) Supporting Document(s) appearance, urine turbid clear Above high normal Appearance, Urine [facility] ([facility]) color, urine yellow yellow Color, Urine [facility] (No [facility]) protein, urine auto negative negative Protein, Urine A meo [place] ([facility]) specific gravity urine auto 1.002-1.035 Specifi c [place] Urine Auto [facility] ([facility]) pH,urine 5.0 units 5.0-9.0 pH,urine [facility] ([facility]) ketone, urine auto negative negative Ketone, Urine Aut o [place] ([facility]) glucose, urine (UA) auto negative negative Glucose, Ur ine (UA) Auto [facility] ([facility]) urobilinogen, urine auto 0.2 mg/dL 0.0-2.0 Urobilinoge n, Urine Auto [facility] ([facility]) nitrite, urine auto negative negative Nitrite, Urine A uto [facility] ([facility]) blood, urine blood negative negative Blood, Urine Bloo d [place] ([facility]) bilirubin, urine auto negative negative Bilirubin, Uri ne Auto [facility] ([facility]) leukocyte esterase, urine auto negative negative Leukocyte Esterase, Urine Auto [facility] ([facility]) RBC, urine auto 0 /hpf 0-3 RBC, Urine Auto [facility] NA ([facility]) WBC, urine auto 0 /hpf 0-3 WBC, Urine Auto [facility] NA ([facility]) bacteria, urine auto negative negative Bacteria, Urine Auto [facility] ([facility]) squamous epithelial cell ur AU 0 /hpf 0-6 Squam ous Epithelial Cell Ur AU [facility] ([facility]) mucus, urine small negative Mucus, Urine [facility] ([facility]) hyaline cast, urine auto 0 /lpf 0-1 Hyaline Shaheed t, Urine Auto [facility] ([facility]) yeast like cell urine auto large none Above high nor mal Yeast like Cell Urine Auto [facility] ([facility]) amorphous sediment small negative Above high normal Amorphous Sediment [facility] ([facility]) ID Date Data Source [id number] 09/15/2020 06:00:00 PM EDT [facility] ([facility]) Name Value Range Interpretation Code Description Data Analia rce(s) Supporting Document(s) ID Date Data Source [id number] 09/15/2020 06:00:00 PM EDT [facility] ([facility]) Name Value Range Interpretation Code Description Data Analia rce(s) Supporting Document(s) appearance, urine turbid clear Above high normal Appearance, Urine [facility] ([facility]) pH,urine 5.0 units 5.0-9.0 pH,urine [facility] ([facility]) color, urine yellow yellow Color, Urine [facility] ([facility]) specific gravity urine auto 1.002-1.035 Specifi c [place] Urine Auto [facility] ([facility]) protein, urine auto negative negative Protein, Urine A uto [facility] ([facility]) nitrite, urine auto negative negative Nitrite, Urine A uto [facility] ([facility]) glucose, urine (UA) auto negative negative Glucose, Ur ine (UA) Auto [facility] ([facility]) bilirubin, urine auto negative negative Bilirubin, Uri ne Auto [facility] ([facility]) ketone, urine auto negative negative Ketone, Urine Aut o [facility] ([facility]) urobilinogen, urine auto 0.2 mg/dL 0.0-2.0 Urobilinoge n, Urine Auto [facility] ([facility]) RBC, urine auto 0 /hpf 0-3 RBC, Urine Auto ATHE NA ([facility]) leukocyte esterase, urine auto negative negative Leukocyte Esterase, Urine Auto [facility] ([facility]) blood, urine blood negative negative Blood, Urine Bloo d [facility] ([facility]) WBC, urine auto 0 /hpf 0-3 WBC, Urine Auto ATHE NA ([facility]) yeast like cell urine auto large none Above high nor mal Yeast like Cell Urine Auto [facility] ([facility]) hyaline cast, urine auto 0 /lpf 0-1 Hyaline Shaheed t, Urine Auto [facility] ([facility]) bacteria, urine auto negative negative Bacteria, Urine Auto [facility] ([facility]) squamous epithelial cell ur AU 0 /hpf 0-6 Squam ous Epithelial Cell Ur AU [facility] ([facility]) mucus, urine small negative Mucus, Urine [facility] (No [facility]) amorphous sediment small negative Above high normal Amorphous Sediment ZEKE ([facility]) ID Date Data Source [id number] 09/15/2020 06:00:00 PM EDT ZEKE ([facility]) Name Value Range Interpretation Code Description Data Analia rce(s) Supporting Document(s) ID Date Data Source [id number] 09/15/2020 06:00:00 PM EDT ZEKE ([facility]) Name Value Range Interpretation Code Description Data Analia rce(s) Supporting Document(s) appearance, urine turbid clear Above high normal Appearance, Urine ZEKE ([facility]) specific gravity urine auto 1.002-1.035 Specifi c [place] Urine Auto ZEKE ([facility]) pH,urine 5.0 units 5.0-9.0 pH,urine ZEKE ([facility]) color, urine yellow yellow Color, Urine ZEKE (No [facility]) protein, urine auto negative negative Protein, Urine A uto ZEKE ([facility]) glucose, urine (UA) auto negative negative Glucose, Ur ine (UA) Auto ZEKE ([facility]) ketone, urine auto negative negative Ketone, Urine Aut o ZEEK ([facility]) leukocyte esterase, urine auto negative negative Leukocyte Esterase, Urine Auto ZEKE ([facility]) nitrite, urine auto negative negative Nitrite, Urine A uto ZEKE ([facility]) urobilinogen, urine auto 0.2 mg/dL 0.0-2.0 Urobilinoge n, Urine Auto ZEKE ([facility]) bilirubin, urine auto negative negative Bilirubin, Uri ne Auto ZEKE ([facility]) blood, urine blood negative negative Blood, Urine Bloo d ZEKE ([facility]) RBC, urine auto 0 /hpf 0-3 RBC, Urine Auto ATHE NA ([facility]) WBC, urine auto 0 /hpf 0-3 WBC, Urine Auto ATHE NA ([facility]) bacteria, urine auto negative negative Bacteria, Urine Auto ZEKE ([facility]) squamous epithelial cell ur AU 0 /hpf 0-6 Squam ous Epithelial Cell Ur AU ZEKE ([facility]) hyaline cast, urine auto 0 /lpf 0-1 Hyaline Shaheed t, Urine Auto ZEKE ([facility]) yeast like cell urine auto large none Above high nor mal Yeast like Cell Urine Auto ZEKE ([facility]) mucus, urine small negative Mucus, Urine ZEKE (No [facility]) amorphous sediment small negative Above high normal Amorphous Sediment ZEKE ([facility]) ID Date Data Source [id number] 09/15/2020 06:00:00 PM EDT [place] ([facility]) Name Value Range Interpretation Code Description Data Analia rce(s) Supporting Document(s) ID Date Data Source [id number] 09/15/2020 06:00:00 PM EDT ZEKE ([facility]) Name Value Range Interpretation Code Description Data Analia rce(s) Supporting Document(s) appearance, urine turbid clear Above high normal Appearance, Urine ZEKE ([facility]) pH,urine 5.0 units 5.0-9.0 pH,urine ZEKE ([facility]) color, urine yellow yellow Color, Urine ZEKE ([facility]) protein, urine auto negative negative Protein, Urine A uto ZEKE ([facility]) specific gravity urine auto 1.002-1.035 Specifi c [place] Urine Auto ZEKE ([facility]) bilirubin, urine auto negative negative Bilirubin, Uri ne Auto ZEKE ([facility]) glucose, urine (UA) auto negative negative Glucose, Ur ine (UA) Auto ZEKE ([facility]) urobilinogen, urine auto 0.2 mg/dL 0.0-2.0 Urobilinoge n, Urine Auto ZEKE ([facility]) ketone, urine auto negative negative Ketone, Urine Aut o ZEKE ([facility]) nitrite, urine auto negative negative Nitrite, Urine A uto ZEKE ([facility]) WBC, urine auto 0 /hpf 0-3 WBC, Urine Auto ATHE NA ([facility]) leukocyte esterase, urine auto negative negative Leukocyte Esterase, Urine Auto ZEKE ([facility]) blood, urine blood negative negative Blood, Urine Bloo d ZEKE ([facility]) yeast like cell urine auto large none Above high nor mal Yeast like Cell Urine Auto ZEKE ([facility]) squamous epithelial cell ur AU 0 /hpf 0-6 Squam ous Epithelial Cell Ur AU ZEKE ([facility]) RBC, urine auto 0 /hpf 0-3 RBC, Urine Auto ATHE NA ([facility]) bacteria, urine auto negative negative Bacteria, Urine Auto ZEKE ([facility]) hyaline cast, urine auto 0 /lpf 0-1 Hyaline Shaheed t, Urine Auto ZEKE ([facility]) mucus, urine small negative Mucus, Urine ZEKE ([facility]) amorphous sediment small negative Above high normal Amorphous Sediment ZEKE ([facility]) ID Date Data Source [id number] 09/15/2020 06:00:00 PM EDT ZEKE ([facility]) Name Value Range Interpretation Code Description Data Analia rce(s) Supporting Document(s) ID Date Data Source [id number] 09/15/2020 06:00:00 PM EDT ZEKE ([facility]) Name Value Range Interpretation Code Description Data Analia rce(s) Supporting Document(s) pH,urine 5.0 units 5.0-9.0 pH,urine ZEKE ([facility]) appearance, urine turbid clear Above high normal Appearance, Urine ZEKE ([facility]) specific gravity urine auto 1.002-1.035 Specifi c [place] Urine Auto ZEKE ([facility]) color, urine yellow yellow Color, Urine ZEKE ([facility]) urobilinogen, urine auto 0.2 mg/dL 0.0-2.0 Urobilinoge n, Urine Auto ZEKE ([facility]) ketone, urine auto negative negative Ketone, Urine Aut o ZEKE ([facility]) protein, urine auto negative negative Protein, Urine A uto ZEKE ([facility]) glucose, urine (UA) auto negative negative Glucose, Ur ine (UA) Auto ZEKE ([facility]) nitrite, urine auto negative negative Nitrite, Urine A meo ZEKE ([facility]) bilirubin, urine auto negative negative Bilirubin, Uri ne Auto ZEKE ([facility]) blood, urine blood negative negative Blood, Urine Bloo d ZEKE ([facility]) leukocyte esterase, urine auto negative negative Leukocyte Esterase, Urine Auto ZEKE ([facility]) WBC, urine auto 0 /hpf 0-3 WBC, Urine Auto ATHE NA ([facility]) squamous epithelial cell ur AU 0 /hpf 0-6 Squam ous Epithelial Cell Ur AU ZEKE ([facility]) bacteria, urine auto negative negative Bacteria, Urine Auto ZEKE ([facility]) yeast like cell urine auto large none Above high nor mal Yeast like Cell Urine Auto ZEKE ([facility]) mucus, urine small negative Mucus, Urine ZEKE (No [facility]) RBC, urine auto 0 /hpf 0-3 RBC, Urine Auto ATHE NA ([facility]) hyaline cast, urine auto 0 /lpf 0-1 Hyaline Shaheed t, Urine Auto ZEKE ([facility]) amorphous sediment small negative Above high normal Amorphous Sediment ZEKE ([facility]) ID Date Data Source [id number] 09/15/2020 06:00:00 PM EDT ZEKE ([facility]) Name Value Range Interpretation Code Description Data Analia rce(s) Supporting Document(s) ID Date Data Source [id number] 09/15/2020 06:00:00 PM EDT ZEKE ([facility]) Name Value Range Interpretation Code Description Data Analia rce(s) Supporting Document(s) appearance, urine turbid clear Above high normal Appearance, Urine ZEKE ([facility]) protein, urine auto negative negative Protein, Urine A uto ZEKE ([facility]) pH,urine 5.0 units 5.0-9.0 pH,urine ZEKE ([facility]) specific gravity urine auto 1.002-1.035 Specifi c [place] Urine Auto ZEKE ([facility]) color, urine yellow yellow Color, Urine ZEKE (No [facility]) ketone, urine auto negative negative Ketone, Urine Aut o ZEKE ([facility]) glucose, urine (UA) auto negative negative Glucose, Ur ine (UA) Auto ZEKE ([facility]) leukocyte esterase, urine auto negative negative Leukocyte Esterase, Urine Auto ZEKE ([facility]) bilirubin, urine auto negative negative Bilirubin, Uri ne Auto ZEKE ([facility]) nitrite, urine auto negative negative Nitrite, Urine A uto ZEKE ([facility]) urobilinogen, urine auto 0.2 mg/dL 0.0-2.0 Urobilinoge n, Urine Auto ZEKE ([facility]) blood, urine blood negative negative Blood, Urine Bloo d ZEKE ([facility]) RBC, urine auto 0 /hpf 0-3 RBC, Urine Auto ATHE NA ([facility]) squamous epithelial cell ur AU 0 /hpf 0-6 Squam ous Epithelial Cell Ur AU ZEKE ([facility]) yeast like cell urine auto large none Above high nor mal Yeast like Cell Urine Auto ZEKE ([facility]) WBC, urine auto 0 /hpf 0-3 WBC, Urine Auto ATHE NA ([facility]) bacteria, urine auto negative negative Bacteria, Urine Auto ZEKE ([facility]) mucus, urine small negative Mucus, Urine ZEKE (No [facility]) hyaline cast, urine auto 0 /lpf 0-1 Hyaline Shaheed t, Urine Auto ZEKE ([facility]) amorphous sediment small negative Above high normal Amorphous Sediment ZEKE ([facility]) Procedure Social History Code Duration Value Status Description Data Source(s ) Smoking 10/06/2020 12:00:00 AM EST Never Smoker completed Never S moker eCW1 ([facility]) Smoking 10/06/2020 12:00:00 AM EST Never Smoker completed Never S moker eCW1 ([facility]) Vital Signs ID Date Data Source UNK Name Value Range Interpretation Code Description Data Source(s) Diastolic blood pressure 69 mm[Hg] 69 mm[Hg] ZEKE ([facility]) Body height 69 [in_i] 69 [in_i] ZEKE ([facility]) Body mass index (BMI) [Ratio] 26.7 kg/m2 26.7 k g/m2 ZEKE ([facility]) Systolic blood pressure 114 mm[Hg] 114 mm[Hg] A THENA ([facility]) Body weight 2888 [oz_av] 2888 [oz_av] ZEKE ([facility]) Body height 69 [in_i] 69 [in_i] ZEKE ([facility]) Body height 69 [in_i] 69 [in_i] ZEKE ([facility]) Body height 69 [in_i] 69 [in_i] ZEKE ([facility]) Body height 69 [in_i] 69 [in_i] ZEKE ([facility]) Body height 69 [in_i] 69 [in_i] ZEKE ([facility]) Body weight 170 [lb_av] 170 [lb_av] eCW1 ([facility]) Body height 69 [in_i] 69 [in_i] eCW1 ([facility]) Body mass index (BMI) [Ratio] 25.10 kg/m2 25.10 kg/m2 eCW1 ([facility]) Heart rate 83 /min 83 /min eCW1 ([facility]) Respiratory rate 18 /min 18 /min eCW1 ([facility]) Body temperature 96.6 [degF] 96.6 [degF] eCW1 ( [facility]) Systolic blood pressure 138 mm[Hg] 138 mm[Hg] e CW1 ([facility]) Diastolic blood pressure 94 mm[Hg] 94 mm[Hg] eCW1 ([facility]) Diastolic blood pressure 75 mm[Hg] 75 mm[Hg] ZEKE ([facility]) Body height 69 [in_i] 69 [in_i] ZEKE ([facility]) Body mass index (BMI) [Ratio] 24.4 kg/m2 24.4 k g/m2 ZEKE ([facility]) Systolic blood pressure 109 mm[Hg] 109 mm[Hg] A [facility] ([facility]) Body weight 2642 [oz_av] 2642 [oz_av] ZEKE ([facility]) Diastolic blood pressure 75 mm[Hg] 75 mm[Hg] ZEKE ([facility]) Body height 69 [in_i] 69 [in_i] ZEKE ([facility]) Body mass index (BMI) [Ratio] 24.4 kg/m2 24.4 k g/m2 ZEKE ([facility]) Systolic blood pressure 109 mm[Hg] 109 mm[Hg] A [facility] ([facility]) Body weight 2642 [oz_av] 2642 [oz_av] ZEKE ([facility]) Diastolic blood pressure 75 mm[Hg] 75 mm[Hg] ZEKE ([facility]) Body height 69 [in_i] 69 [in_i] ZEKE ([facility]) Body mass index (BMI) [Ratio] 24.4 kg/m2 24.4 k g/m2 ZEKE ([facility]) Systolic blood pressure 109 mm[Hg] 109 mm[Hg] [facility] Body weight 2642 [oz_av] 2642 [oz_av] ZEKE ([facility]) Diastolic blood pressure 75 mm[Hg] 75 mm[Hg] ZEKE ([facility]) Body height 69 [in_i] 69 [in_i] ZEKE ([facility]) Body mass index (BMI) [Ratio] 24.4 kg/m2 24.4 k g/m2 ZEKE ([facility]) Systolic blood pressure 109 mm[Hg] 109 mm[Hg] [facility] Body weight 2642 [oz_av] 2642 [oz_av] ZEKE ([facility]) Diastolic blood pressure 75 mm[Hg] 75 mm[Hg] ZEKE ([facility]) Body height 69 [in_i] 69 [in_i] ZEKE ([facility]) Diastolic blood pressure 75 mm[Hg] 75 mm[Hg] ZEKE ([facility]) Body height 69 [in_i] 69 [in_i] ZEKE ([facility]) Body mass index (BMI) [Ratio] 24.4 kg/m2 24.4 k g/m2 ZEKE ([facility]) Systolic blood pressure 109 mm[Hg] 109 mm[Hg] [facility] Body weight 2642 [oz_av] 2642 [oz_av] ZEKE ([facility]) Body mass index (BMI) [Ratio] 24.4 kg/m2 24.4 k g/m2 ZEKE ([facility]) Systolic blood pressure 109 mm[Hg] 109 mm[Hg] [facility] Body weight 2642 [oz_av] 2642 [oz_av] ZEKE ([facility]) Diastolic blood pressure 75 mm[Hg] 75 mm[Hg] ZEKE ([facility]) Body height 69 [in_i] 69 [in_i] ZEKE ([facility]) Body mass index (BMI) [Ratio] 24.4 kg/m2 24.4 k g/m2 ZEKE ([facility]) Systolic blood pressure 109 mm[Hg] 109 mm[Hg] A THENA ([facility]) Body weight 2642 [oz_av] 2642 [oz_av] ZEKE ([facility]) Diastolic blood pressure 75 mm[Hg] 75 mm[Hg] ZEKE ([facility]) Body height 69 [in_i] 69 [in_i] ZEKE ([facility]) Body mass index (BMI) [Ratio] 24.4 kg/m2 24.4 k g/m2 ZEKE ([facility]) Systolic blood pressure 109 mm[Hg] 109 mm[Hg] A THENA ([facility]) Body weight 2642 [oz_av] 2642 [oz_av] ZEKE ([facility]) Diastolic blood pressure 75 mm[Hg] 75 mm[Hg] ZEKE ([facility]) Body height 69 [in_i] 69 [in_i] ZEKE ([facility]) Body mass index (BMI) [Ratio] 24.4 kg/m2 24.4 k g/m2 ZEKE ([facility]) Systolic blood pressure 109 mm[Hg] 109 mm[Hg] A THENA ([facility]) Body weight 2642 [oz_av] 2642 [oz_av] ZEKE ([facility]) Diastolic blood pressure 77 mm[Hg] 77 mm[Hg] ZEKE ([facility]) Body height 69 [in_i] 69 [in_i] ZEKE ([facility]) Body mass index (BMI) [Ratio] 25.9 kg/m2 25.9 k g/m2 ZEKE ([facility]) Systolic blood pressure 122 mm[Hg] 122 mm[Hg] A THENA ([facility]) Body weight 2802 [oz_av] 2802 [oz_av] ZEKE ([facility]) Diastolic blood pressure 77 mm[Hg] 77 mm[Hg] ZEKE ([facility]) Body height 69 [in_i] 69 [in_i] ZEKE ([facility]) Body mass index (BMI) [Ratio] 25.9 kg/m2 25.9 k g/m2 ZEKE ([facility]) Systolic blood pressure 122 mm[Hg] 122 mm[Hg] A THENA ([facility]) Body weight 2802 [oz_av] 2802 [oz_av] ZEKE ([facility]) Diastolic blood pressure 77 mm[Hg] 77 mm[Hg] ZEKE ([facility]) Body height 69 [in_i] 69 [in_i] ZEKE ([facility]) Body mass index (BMI) [Ratio] 25.9 kg/m2 25.9 k g/m2 ZEKE ([facility]) Systolic blood pressure 122 mm[Hg] 122 mm[Hg] A THENA ([facility]) Body weight 2802 [oz_av] 2802 [oz_av] ZEKE ([facility]) Diastolic blood pressure 77 mm[Hg] 77 mm[Hg] ZEKE ([facility]) Body height 69 [in_i] 69 [in_i] ZEKE ([facility]) Body mass index (BMI) [Ratio] 25.9 kg/m2 25.9 k g/m2 ZEKE ([facility]) Systolic blood pressure 122 mm[Hg] 122 mm[Hg] A THENA ([facility]) Body weight 2802 [oz_av] 2802 [oz_av] ZEKE ([facility]) Diastolic blood pressure 77 mm[Hg] 77 mm[Hg] ZEKE ([facility]) Body height 69 [in_i] 69 [in_i] ZEKE ([facility]) Body mass index (BMI) [Ratio] 25.9 kg/m2 25.9 k g/m2 ZEKE ([facility]) Systolic blood pressure 122 mm[Hg] 122 mm[Hg] A THENA ([facility]) Body weight 2802 [oz_av] 2802 [oz_av] ZEKE ([facility]) Diastolic blood pressure 77 mm[Hg] 77 mm[Hg] ZEKE ([facility]) Body height 69 [in_i] 69 [in_i] ZEKE ([facility]) Body mass index (BMI) [Ratio] 25.9 kg/m2 25.9 k g/m2 ZEKE ([facility]) Systolic blood pressure 122 mm[Hg] 122 mm[Hg] A THENA ([facility]) Body weight 2802 [oz_av] 2802 [oz_av] ZEKE ([facility]) Diastolic blood pressure 77 mm[Hg] 77 mm[Hg] ZEKE ([facility]) Body height 69 [in_i] 69 [in_i] ZEKE ([facility]) Body mass index (BMI) [Ratio] 25.9 kg/m2 25.9 k g/m2 ZEKE ([facility]) Systolic blood pressure 122 mm[Hg] 122 mm[Hg] A THENA ([facility]) Body weight 2802 [oz_av] 2802 [oz_av] ZEKE ([facility]) Diastolic blood pressure 77 mm[Hg] 77 mm[Hg] ZEKE ([facility]) Body height 69 [in_i] 69 [in_i] ZEKE ([facility]) Body mass index (BMI) [Ratio] 25.9 kg/m2 25.9 k g/m2 ZEKE ([facility]) Systolic blood pressure 122 mm[Hg] 122 mm[Hg] A THENA ([facility]) Body weight 2802 [oz_av] 2802 [oz_av] ZEKE ([facility]) Diastolic blood pressure 77 mm[Hg] 77 mm[Hg] ZEKE ([facility]) Body height 69 [in_i] 69 [in_i] ZEKE ([facility]) Body mass index (BMI) [Ratio] 25.9 kg/m2 25.9 k g/m2 ZEKE ([facility]) Systolic blood pressure 122 mm[Hg] 122 mm[Hg] A THENA ([facility]) Body weight 2802 [oz_av] 2802 [oz_av] ZEKE ([facility]) Diastolic blood pressure 77 mm[Hg] 77 mm[Hg] ZEKE ([facility]) Body height 69 [in_i] 69 [in_i] ZEKE ([facility]) Body mass index (BMI) [Ratio] 25.9 kg/m2 25.9 k g/m2 ZEKE ([facility]) Systolic blood pressure 122 mm[Hg] 122 mm[Hg] A THENA ([facility]) Body weight 2802 [oz_av] 2802 [oz_av] ZEKE ([facility]) Patient Treatment Plan of Care Planned Activity Planned Date Details Description Data Source (s) POLYETHYLENE GLYCOL 3350 142 MG/ML Oral Solution ZEKE ([facility]) Docusate Sodium 100 MG Oral Capsule [DOK] ZEKE ([facility]) Ciprofloxacin 500 MG Oral Tablet ZEKE ([facility]) Cephalexin 500 MG Oral Capsule ZEKE ([facility]) Ciprofloxacin 500 MG Oral Tablet ZEKE ([facility]) Cephalexin 500 MG Oral Capsule ZEKE ([facility]) Ciprofloxacin 500 MG Oral Tablet ZEKE ([facility]) Cephalexin 500 MG Oral Capsule ZEKE ([facility]) Ciprofloxacin 500 MG Oral Tablet ZEKE ([facility]) Cephalexin 500 MG Oral Capsule ZEKE ([facility]) Ciprofloxacin 500 MG Oral Tablet ZEKE ([facility]) Cephalexin 500 MG Oral Capsule ZEKE ([facility]) Ciprofloxacin 500 MG Oral Tablet ZEKE ([facility]) Cephalexin 500 MG Oral Capsule ZEKE ([facility]) Ciprofloxacin 500 MG Oral Tablet ZEKE ([facility]) Cephalexin 500 MG Oral Capsule ZEKE ([facility]) Ciprofloxacin 500 MG Oral Tablet ZEKE ([facility]) Cephalexin 500 MG Oral Capsule ZEKE ([facility]) Ciprofloxacin 500 MG Oral Tablet ZEKE ([facility]) Cephalexin 500 MG Oral Capsule ZEKE ([facility]) Cephalexin 500 MG Oral Capsule ZEKE ([facility])
--- OUTSIDE RECORDS SUMMARY | 2021-10-04 11:51 | CCD ---
Author Author [facility] Organization [facility] Address Unknown Phone Unavailable Care Team Providers Care Temper [place] Roller Name Role Phone Disha Saha MD Unavailable [...] Disha Saha MD Unavailable Unavailable Inge Turpin OLIVE PACKER Unavailable Unavailable Kary Chavez Unavailable [phone] Willam, A Lazara OLIVE PACKER Unavailable Unavailable Willam, A Lazara OLIVE PACKER Unavailable Unavailable Willam, A Lazara OLIVE PACKER Unavailable Unavailable Willam, A Lazara OLIVE PACKER Unavailable Unavailable Willam, A Lazara OLIVE PACKER Unavailable Unavailable Willam, A Lazara OLIVE PACKER Unavailable Unavailable Willam, A Lazara OLIVE PACKER Unavailable Unavailable Willam, A Lazara OLIVE PACKER Unavailable Unavailable Willam, A Lazara OLIVE PACKER Unavailable Unavailable Willam, A Lazara OLIVE PACKER Unavailable Unavailable Willam, A Lazara OLIVE PACKER Unavailable Unavailable Willam, A Lazara OLIVE PACKER Unavailable Unavailable Willam, A Lazara OLIVE PACKER Unavailable Unavailable Willam, A Lazara OLIVE PACKER Unavailable Unavailable Willam, A Lazara OLIVE PACKER Unavailable Unavailable Willam, A Lazara OLIVE PACKER Unavailable Unavailable Willam, A Lazara OLIVE PACKER Unavailable Unavailable Willam, A Lazara OLIVE PACKER Unavailable Unavailable Willam, A Lazara OLIVE PACKER Unavailable Unavailable Willam, A Lazara OLIVE PACKER Unavailable Unavailable Willam, A Lazara OLIVE PACKER Unavailable Unavailable Willam, A Lazara OLIVE PACKER Unavailable Unavailable Willam, A Lazara OLIVE PACKER Unavailable Unavailable Willam, A Lazara OLIVE PACKER Unavailable Unavailable Willam, A Lazara OLIVE PACKER Unavailable Unavailable Willam, A Lazara OLIVE PACKER Unavailable Unavailable Willam, A Lazara OLIVE PACKER Unavailable Unavailable Willam, A Lazara OLIVE PACKER Unavailable Unavailable Willam, A Lazara OLIVE PACKER Unavailable Unavailable Willam, A Lazara OLIVE PACKER Unavailable Unavailable Willam, A Lazara OLIVE PACKER Unavailable Unavailable Joon Simmons MD, MD Unavailable [...] is protected by Article 27-F of the [facility] Public Health law. If you continue you may have access to information: Regarding HIV / AIDS; Provided by facilities licensed or operated by the [facility] Office of Mental Health; or Provided by the [facility] Office for People With Developmental Disabilities. If such information is present, then the following [facility] mandated warning applies: This information has been [...] law may result in a fine or long-term sentence or both. A general authorization for the release of medical or other information is NOT sufficient authorization for further disc losure. Family History Family Member Name Family Member Gender Family Member Status Date o f Status Description Data Source(s) Unknown Unknown Problem MEDENT ([employer] [place]) Encounters Encounter Providers Location Date Indications Data Source(s ) MICHELLE Amador-: [address] [place] [address], Ph. Attender: Lazara MARTINEZ [facility] Medical 03/31/2021 12:00:00 AM EDT [facility]) Sonia Khan PA-C: [address] [place] [address], Ph. Attender: Sonia [facility] Medical 03/17/2021 12:00:00 AM EDT [facility]) Sonia Khan PA-C: [address] [place] [address], Ph. Attender: Sonia [facility] Medical 03/17/2021 12:00:00 AM EDT [facility]) Alonso Saha MD: [address] [place] [address], Ph. Attender: Alonso Saha MD [facility] Medical 02/25/2021 12:00:00 AM EDT [facility] ([facility]) Alonso Saha MD: [address] [place] [address], Ph. Attender: Alonso Saha MD [facility] Medical 02/25/2021 12:00:00 AM EDT [facility] ([facility]) Alonso Saha MD: [address] [place] [address], Ph. Attender: Alonso Saha MD [facility] Medical 02/25/2021 12:00:00 AM EDT [facility] ([facility]) Kary Chavez, [facility]: [address] [place] [address], Ph. Attender: Kary Gamezlindsey [facility] Medical 11/17/2020 12:00:00 AM EST [facility] ([facility]) Kary Chavez, [facility]: [address] [place] [address], Ph. Attender: Kary Chavez [facility] Medical 11/17/2020 12:00:00 AM EST [facility] ([facility]) Kary Chavez, [facility]: [address] [place] [address], Ph. Attender: Kary Chavez [facility] Medical 11/17/2020 12:00:00 AM EST [facility] ([facility]) Kary Chavez, [facility]: [address] [place] [address], Ph. Attender: Kary Chavez [facility] Medical 11/17/2020 12:00:00 AM EST [facility] ([facility]) Recurring Patient Attender: Sonal Raymundo MDReferrer: Joon galicia MD 11/13/2020 02:30:14 PM EST [facility] Sonia Khan PA-C: [address], [facility] [place] [address], Ph. Attender: Sonia [facility] Medical 11/06/2020 12:00:00 AM EST [facility] ([facility]) Sonia Khan PA-C: [address], [place] [address], Ph. Attender: Sonia [facility] Medical 11/06/2020 12:00:00 AM EST [facility] ([facility]) Sonia Khan PA-C: [address], [facility] [place] [address], Ph. Attender: Sonia [facility] Medical 11/06/2020 12:00:00 AM EST [facility] ([facility]) Sonia Khan PA-C: [address], [facility] [place] [place] [address], Ph. Attender: Sonia [facility] Medical 11/06/2020 12:00:00 AM EST [facility] ([facility]) Sonia Khan PA-C: [address], [facility] [place] [place] [address], Ph. Attender: Sonia [facility] Medical 11/06/2020 12:00:00 AM EST [facility] ([facility]) Kary Chavez LMSW: [address], [place] [address], Ph. Attender: Kary Chavez [facility] Medical 10/29/2020 12:00:00 AM EST [facility] ([facility]) Kary Chavez LMSW: [address], [place] [address], Ph. Attender: Kary Chavez [facility] Medical 10/29/2020 12:00:00 AM EST [facility] ([facility]) Kary Chavez, [facility]: [address] [place] [address], Ph. Attender: Kary Chavez [facility] Medical 10/29/2020 12:00:00 AM EST [facility] ([facility]) Kary Chavez, [facility]: [address] [place] [address], Ph. Attender: Kary Chavez [facility] Medical 10/29/2020 12:00:00 AM EST [facility] ([facility]) Kary Chavez, [facility]: [address] [place] [address], Ph. Attender: Kary Gamezlindsye [facility] Medical 10/29/2020 12:00:00 AM EST [facility] ([facility]) Kary Chavez, [facility]: [address] [place] [address], Ph. Attender: Kary Chavez [facility] Medical 10/29/2020 12:00:00 AM EST [facility] ([facility]) Kary Gamezlindsey, [facility]: [address] [place] [address], Ph. Attender: Kary Chavez [facility] Medical 10/29/2020 12:00:00 AM EST [facility] ([facility]) Kary Gamezlindsey, [facility]: [address] [place] [address], Ph. Attender: Kary Gamezlindsey [facility] Medical 10/14/2020 12:00:00 AM EST [facility] ([facility]) Kary Chavez [facility]: [address], [place] [address], Ph. Attender: Kary Chavez [facility] Medical 10/14/2020 12:00:00 AM EST [facility] ([facility]) Kary Chavez, [facility]: [address], [place] [address], Ph. Attender: Kary Chavez [facility] Medical 10/14/2020 12:00:00 AM EST [facility] ([facility]) Kary Chavez, [facility]: [address], [place] [address], Ph. Attender: Kary Chavez [facility] Medical 10/14/2020 12:00:00 AM EST [facility] ([facility]) [facility]: [address], [place] [address], Ph. Attender: Kary Chavez [facility] Medical 10/14/2020 12:00:00 AM EST [facility] ([facility]) Kary Chavez, [facility]: [address], [place] [address], Ph. Attender: Kary Chavze [facility] Medical 10/14/2020 12:00:00 AM EST [facility] ([facility]) Kary Chavez, [facility]: [address], [place] [address], Ph. Attender: Kary Chavez [facility] Medical 10/14/2020 12:00:00 AM EST [facility] ([facility]) Kary Chavez, [facility]: [address], [place] [address], Ph. Attender: Kary Chavez [facility] Medical 10/14/2020 12:00:00 AM EST [facility] ([facility]) Outpatient [address] [facility] [address] 10/06/2020 12:00:00 AM EST [facility]CW1 ([facility]) Unknown [address] [facility] [address] 10/06/2020 12:00:00 AM EST eCW1 ([facility]) MILENA Amador: [address], [place] [address], Ph. Attender: Lazara Quarles [facility] Medical 09/30/2020 12:00:00 AM EST [facility] ([facility]) MILENA Amador: [address], [place] [address], Ph. Attender: Lazara Quarles [facility] Medical 09/30/2020 12:00:00 AM EST [facility] ([facility]) MILENA Amador: [address], [place] [address], Ph. Attender: Lazara Quarles [facility] Medical 09/30/2020 12:00:00 AM EST [facility] ([facility]) MILENA Amador: [address], [place] [address], Ph. Attender: Lazara Quarles [facility] Medical 09/30/2020 12:00:00 AM EST [facility] ([facility]) MILENA Amador: [address], [place] [address], Ph. Attender: Lazara Quarles [facility] Medical 09/30/2020 12:00:00 AM EST [facility] ([facility]) Lazara Quarles [facility]: [address], [place] [address], Ph. Attender: Lazara Quarles [facility] Medical 09/30/2020 12:00:00 AM EST [facility] ([facility]) Lazara Quarles [facility]: [address], [place] [address], Ph. Attender: Lazara Quarles [facility] Medical 09/30/2020 12:00:00 AM EST [facility] ([facility]) Lazara Quarles [facility]: [address], [place] [address], Ph. Attender: Lazara Quarles [facility] Medical 09/30/2020 12:00:00 AM EST [facility] ([facility]) Lazara Quarles [facility]: [address], [place] [address], Ph. Attender: Lazara Quarles [facility] Medical 09/30/2020 12:00:00 AM EST [facility] ([facility]) Kary Chavez LMSW: [address] [place] [address], Ph. Attender: Kary Chavez [facility] Medical 09/28/2020 12:00:00 AM EST [facility] ([facility]) Kary Chavez LMSW: [address], [place] [address], Ph. Attender: Kary Chavez [facility] Medical 09/28/2020 12:00:00 AM EST [facility] ([facility]) Kary Chavez LMSW: [address], [place] [address], Ph. Attender: Kary Chavez [facility] Medical 09/28/2020 12:00:00 AM EST [facility] ([facility]) Kary Chavez, [facility]: [address] [place] [address], Ph. Attender: Kary Chavez [facility] Medical 09/28/2020 12:00:00 AM EST [facility] ([facility]) Kary Chavez, [facility]: [address] [place] [address], Ph. Attender: Kary Chavez [facility] Medical 09/28/2020 12:00:00 AM EST [facility] ([facility]) Kary Chavez, [facility]: [address] [place] [address], Ph. Attender: Kary Chavez [facility] Medical 09/28/2020 12:00:00 AM EST [facility] ([facility]) Kary Chavez, [facility]: [address] [place] [address], Ph. Attender: Kary Chavez [facility] Medical 09/28/2020 12:00:00 AM EST [facility] ([facility]) Kary Chavez, [facility]: [address] [place] [address], Ph. Attender: Kary Chavez [facility] Medical 09/28/2020 12:00:00 AM EST [facility] ([facility]) Kary Chavez, [facility]: [address] [place] [address], Ph. Attender: Kary Chavez [facility] Medical 09/28/2020 12:00:00 AM EST [facility] ([facility]) MILENA AmadorBC: [address], [place] [address], Ph. Attender: Lazara Quarles [facility] Medical 09/15/2020 12:00:00 AM EDT [facility] ([facility]) Lazara Quarles [facility]: [address], [place] [address], Ph. Attender: Lazara Quarles [facility] Medical 09/15/2020 12:00:00 AM EDT [facility] ([facility]) Lazara Quarles [facility]: [address], [place] [address], Ph. Attender: Lazara Quarles [facility] Medical 09/15/2020 12:00:00 AM EDT [facility] ([facility]) Lazara Quarles [facility]: [address], [place] [address], Ph. Attender: Lazara Quarles [facility] Medical 09/15/2020 12:00:00 AM EDT [facility] ([facility]) Lazara Quarles [facility]: [address], [place] [address], Ph. Attender: Lazara Quarles [facility] Medical 09/15/2020 12:00:00 AM EDT [facility] ([facility]) Lazara Quarles [facility]: [address], [place] [address], Ph. Attender: Lazara Quarles [facility] Medical 09/15/2020 12:00:00 AM EDT [facility] ([facility]) Lazara Quarles [facility]: [address], [place] [address], Ph. Attender: Lazara Quarles [facility] Medical 09/15/2020 12:00:00 AM EDT [facility]) [facility] [address], [place] [address], Ph. Attender: Lazara Quarles [facility] Medical 09/15/2020 12:00:00 AM EDT [facility]) [facility]: [address], [place] [address], Ph. Attender: Lazara Quarles [facility] Medical 09/15/2020 12:00:00 AM EDT [facility]) Lazara Quarles [facility]: [address], [place] [address], Ph. Attender: Lazara Quarles [facility] Medical 09/15/2020 12:00:00 AM EDT [facility]) [facility] 08/19/2020 12:02:43 AM EDT [facility] Outpatient [facility]: [facility] 08/18/2020 11:29:01 AM EDT [facility] Medications Medication Brand Name Start Date Product [...] capsule completed cephalexin 500 MG Oral Capsule [facility] ([facility]) POLYETHYLENE GLYCOL 3350 142 MG/ML Oral Solution polyethylene glycol 3350 17 gram/dose oral powder MIX 1 CAPFUL WITH LIQUID THREE TIMES A DAY UNTIL RELIEVED OF CONSTIPATION polyethylene glycol 3350 17 gram/dose or al powder MIX 1 CAPFUL WITH LIQUID THREE TIMES A DAY UNTIL RELIEVED OF CONSTIPATION completed polyethylene glycol 3350 75646 M G Powder for Oral Solution [facility] ([facility]) Docusate Sodium 100 MG Oral Capsule [DOK ] DOK 100 mg capsule TAKE ONE CAPSULE BY MOUTH TWICE A DAY DOK 100 mg capsule TAKE ONE CAPSULE BY MOUTH TWICE A DAY completed docusate sodium 100 MG Oral Capsule [DOK] [facility] ([facility]) Ciprofloxacin 500 MG Oral Tablet ciprofloxacin 500 mg tablet ciprofloxacin 500 mg tablet completed ciprofloxaci n 500 MG Oral Tablet [place] ([facility]) Cephalexin 500 MG Oral Capsule cephalexin 500 mg capsu le cephalexin 500 mg capsule completed cephalexin 500 MG Oral Capsule [place] ([facility]) Cephalexin 500 MG Oral Capsule cephalexin 500 mg capsu le cephalexin 500 mg capsule completed cephalexin 500 MG Oral Capsule [facility] ([facility]) Cephalexin 500 MG Oral Capsule cephalexin 500 mg capsu le cephalexin 500 mg capsule completed cephalexin 500 MG Oral Capsule [facility] ([facility]) Cephalexin 500 MG Oral Capsule cephalexin 500 mg capsu le cephalexin 500 mg capsule completed cephalexin 500 MG Oral Capsule [place] ([facility]) Ciprofloxacin 500 MG Oral Tablet ciprofloxacin 500 mg tablet ciprofloxacin 500 mg tablet completed ciprofloxaci n 500 MG Oral Tablet [place] ([facility]) Ciprofloxacin 500 MG Oral Tablet ciprofloxacin 500 mg tablet ciprofloxacin 500 mg tablet completed ciprofloxaci n 500 MG Oral Tablet [place] ([facility]) Ciprofloxacin 500 MG Oral Tablet ciprofloxacin 500 mg tablet ciprofloxacin 500 mg tablet completed ciprofloxaci n 500 MG Oral Tablet [place] ([facility]) Ciprofloxacin 500 MG Oral Tablet ciprofloxacin 500 mg tablet ciprofloxacin 500 mg tablet completed ciprofloxaci n 500 MG Oral Tablet [facility] ([facility]) Cephalexin 500 MG Oral Capsule cephalexin 500 mg capsu le cephalexin 500 mg capsule completed cephalexin 500 MG Oral Capsule [facility] ([facility]) Ciprofloxacin 500 MG Oral Tablet ciprofloxacin 500 mg tablet ciprofloxacin 500 mg tablet completed ciprofloxaci n 500 MG Oral Tablet [facility] ([facility]) Cephalexin 500 MG Oral Capsule cephalexin 500 mg capsu le cephalexin 500 mg capsule completed cephalexin 500 MG Oral Capsule [facility] ([facility]) Ciprofloxacin 500 MG Oral Tablet ciprofloxacin 500 mg tablet ciprofloxacin 500 mg tablet completed ciprofloxaci n 500 MG Oral Tablet [place] ([facility]) Cephalexin 500 MG Oral Capsule cephalexin 500 mg capsu le cephalexin 500 mg capsule completed cephalexin 500 MG Oral Capsule [facility]) Ciprofloxacin 500 MG Oral Tablet ciprofloxacin 500 mg tablet ciprofloxacin 500 mg tablet completed ciprofloxaci n 500 MG Oral Tablet [facility]) Cephalexin 500 MG Oral Capsule cephalexin 500 mg capsu le cephalexin 500 mg capsule completed cephalexin 500 MG Oral Capsule [place] ([facility]) Cephalexin 500 MG Oral Capsule cephalexin 500 mg capsu le cephalexin 500 mg capsule completed cephalexin 500 MG Oral Capsule [place] ([facility]) Ciprofloxacin 500 MG Oral Tablet ciprofloxacin 500 mg tablet ciprofloxacin 500 mg tablet completed ciprofloxaci n 500 MG Oral Tablet [place] ([facility]) Insurance Providers Payer name Policy type / Coverage type Policy ID Covered constitution party ID Covered constitution party's relationship to roca Policy Roca Plan Information MEDICARE 4 [id number] Med[place] B [id number] Family Dependent BC EXC PLANS 1 [id number] EXCELLUS BCBS [id number] Spo [id number] Medicaid P [id number] S [id number] Medicaid P [id number] S [id number] SELF PAY 2 UNAVAILABLE 1 UNAVAILA BLE Total Care Commercial [id number] Self MEDICAID [id number] SP [id number] [place] Med[place] B [id number] Family Dependent [place] Med[place] B [id number] Family Dependent EMEDNY [id number] SP [id number] SELF PAY 5 UNAVAILABLE 1 UNAVAILA BLE Problems, Conditions, and Diagnoses Code Display Name Description Problem Type Effective Dates Data Source(s) 42965691 Posttraumatic stress disorder Posttraumatic Stress Dis order Problem 11/17/2020 12:00:00 AM EST [facility] ([facility]) [id number] Posttraumatic stress disorder Posttraumatic Stress Dis order Problem 11/17/2020 12:00:00 AM EST [facility] ([facility] er) 56190398 Posttraumatic stress disorder Posttraumatic Stress Dis order Problem 11/17/2020 12:00:00 AM EST [facility] ([facility] er) 57411694 Posttraumatic stress disorder Posttraumatic Stress Dis order Problem 11/17/2020 12:00:00 AM EST [facility] ([facility] er) 468530288 Stress and adjustment reaction Stress and Adjustment R eaction Problem 10/15/2020 12:00:00 AM EST [facility] ([facility] er) 823039769 Stress and adjustment reaction Stress and Adjustment R eaction Problem 10/15/2020 12:00:00 AM EST [facility] ([facility] er) 543461452 Stress and adjustment reaction Stress and Adjustment R eaction Problem 10/15/2020 12:00:00 AM EST [facility] ([facility] er) 152467056 Stress and adjustment reaction Stress and Adjustment R eaction Problem 10/15/2020 12:00:00 AM EST [facility] ([facility] er) 254139452 Stress and adjustment reaction Stress and Adjustment R eaction Problem 10/15/2020 12:00:00 AM EST [facility] ([facility] er) 800056287 Stress and adjustment reaction Stress and Adjustment R eaction Problem 10/15/2020 12:00:00 AM EST [facility] ([facility]) 481589376 Stress and adjustment reaction Stress and Adjustment R eaction Problem 10/15/2020 12:00:00 AM EST [facility] ([facility]) 986835189 Stress and adjustment reaction Stress and Adjustment R eaction Problem 10/15/2020 12:00:00 AM EST [facility] ([facility]) N48.30 4686253 Painful penile erection Problem 10/06/2020 1 2:00:00 AM EST eCW1 ([facility]) [id number] Laceration of blood vessel of finger Lac eration of Blood Vessel of Finger Problem 02/28/2020 12:00:00 AM EDT - 11/06/2020 12:00:00 AM EST [facility] ([facility]) [id number] Laceration of blood vessel of finger Lac eration of Blood Vessel of Finger Problem 02/28/2020 12:00:00 AM EDT - 11/06/2020 12:00:00 AM EST [facility] ([facility]) [id number] Laceration of blood vessel of finger Lac eration of Blood Vessel of Finger Problem 02/28/2020 12:00:00 AM EDT - 11/06/2020 12:00:00 AM EST [facility] ([facility]) [id number] Laceration of blood vessel of finger Lac eration of Blood Vessel of Finger Problem 02/28/2020 12:00:00 AM EDT - 11/06/2020 12:00:00 AM EST ZE[facility] ([facility]) [id number] Laceration of blood vessel of finger Lac eration of Blood Vessel of Finger Problem 02/28/2020 12:00:00 AM EDT - 11/06/2020 12:00:00 AM EST [facility] ([facility]) [id number] [facility] Problem 10/18/2019 12:00:00 AM EST - 11/06/2020 12:00:00 AM EST [facility] ([facility]) [id number] [facility] Present Problem 10/18/2019 12:00:00 AM EST - 11/06/2020 12:00:00 AM EST [facility] ([facility]) [id number] [facility] Present Problem 10/18/2019 12:00:00 AM EST - 11/06/2020 12:00:00 AM EST [facility] ([facility]) [id number] [facility] Present Problem 10/18/2019 12:00:00 AM EST - 11/06/2020 12:00:00 AM EST [facility] ([facility]) [id number] [facility] Present Problem 10/18/2019 12:00:00 AM EST - 11/06/2020 12:00:00 AM EST [facility] ([facility]) [id number] Procedure by method Procedure by Method Problem 0 08/06/2019 12:00:00 AM EDT - 11/06/2020 12:00:00 AM EST ZEKE ([facility]) [id number] Procedure by method Procedure by Method Problem 0 08/06/2019 12:00:00 AM EDT - 11/06/2020 12:00:00 AM EST [facility]EKE ([facility]) [id number] Procedure by method Procedure by Method Problem 0 08/06/2019 12:00:00 AM EDT - 11/06/2020 12:00:00 AM EST [facility] ([facility]) [id number] Procedure by method Procedure by Method Problem 0 08/06/2019 12:00:00 AM EDT - 11/06/2020 12:00:00 AM EST [facility]EKE ([facility]) [id number] Procedure by method Procedure by Method Problem 0 08/06/2019 12:00:00 AM EDT - 11/06/2020 12:00:00 AM EST [facility] ([facility]) Surgeries/Procedures No Information Results ID Date Data Source [id number] 03/17/2021 09:21:00 AM EDT [facility] ([facility]) Name Value Range Interpretation Code Description Data Analia rce(s) Supporting Document(s) sars-cov-2 negative negative Sars-cov-2 [facility] ([facility]) ID Date Data Source [id number] 03/17/2021 09:17:00 AM EDT [facility] Name Value Range Interpretation Code Description Data Analia rce(s) Supporting Document(s) SARS coronavirus 2 RdRp gene [Presence] in Respiratory specimen by LISA with probe detection Not detected [facility] This lab was ordered by [facility] and reported by [facility]. ID Date Data Source [id number] 02/25/2021 10:45:00 AM EDT [place] ([facility]) Name Value Range Interpretation Code Description Data Analia rce(s) Supporting Document(s) sars-cov-2 positive negative Abnormal (applies to non-num [place] results) Sars-cov-2 [place] ([facility]) ID Date Data Source [id number] 02/25/2021 10:45:00 AM EDT [facility] ([facility]) Name Value Range Interpretation Code Description Data Analia rce(s) Supporting Document(s) sars-cov-2 positive negative Abnormal (applies to non-num [place] results) Sars-cov-2 [facility]) ID Date Data Source [id number] 02/25/2021 10:45:00 AM EDT [facility] ([facility]) Name Value Range Interpretation Code Description Data Analia rce(s) Supporting Document(s) sars-cov-2 positive negative Abnormal (applies to non-num [place] results) Sars-cov-2 [place] ([facility]) ID Date Data Source [id number] 02/25/2021 10:42:00 AM EDT [facility] Name Value Range Interpretation Code Description Data Analia rce(s) Supporting Document(s) SARS coronavirus 2 RdRp gene [Presence] in Respiratory specimen by LISA with probe detection Detected [facility] This lab was ordered by [facility] and reported by [facility]. ID Date Data Source [id number] 09/15/2020 06:00:00 PM EDT [facility]) Name Value Range Interpretation Code Description Data Analia rce(s) Supporting Document(s) ID Date Data Source [id number] 09/15/2020 06:00:00 PM EDT [place] ([facility]) Name Value Range Interpretation Code Description Data Analia rce(s) Supporting Document(s) appearance, urine turbid clear Above high normal Appearance, Urine [place] ([facility]) color, urine yellow yellow Color, Urine [facility]EKE (No [facility]) pH,urine 5.0 units 5.0-9.0 pH,urine [place] ([facility]) glucose, urine (UA) auto negative negative Glucose, Ur ine (UA) Auto [facility] ([facility]) specific gravity urine auto 1.002-1.035 Specifi c [place] Urine Auto [facility] ([facility]) protein, urine auto negative negative Protein, Urine A uto [facility] ([facility]) nitrite, urine auto negative negative Nitrite, Urine A pao [facility] ([facility]) bilirubin, urine auto negative negative Bilirubin, Uri ne Auto [facility] ([facility]) ketone, urine auto negative negative Ketone, Urine Aut o [facility] ([facility]) urobilinogen, urine auto 0.2 mg/dL 0.0-2.0 Urobilinoge n, Urine Auto [facility] ([facility]) WBC, urine auto 0 /hpf 0-3 WBC, Urine Auto ATHE NA ([facility]) blood, urine blood negative negative Blood, Urine Bloo d [facility] ([facility]) leukocyte esterase, urine auto negative negative Leukocyte Esterase, Urine Auto [facility] ([facility]) RBC, urine auto 0 /hpf 0-3 RBC, Urine Auto ATHE NA ([facility]) squamous epithelial cell ur AU 0 /hpf 0-6 Squam ous Epithelial Cell Ur AU [facility] ([facility]) mucus, urine small negative Mucus, Urine [facility] (No [facility]) bacteria, urine auto negative negative Bacteria, Urine Auto [facility] ([facility]) yeast like cell urine auto large none Above high nor mal Yeast like Cell Urine Auto [facility] ([facility]) hyaline cast, urine auto 0 /lpf 0-1 Hyaline Shaheed t, Urine Auto [facility] ([facility]) amorphous sediment small negative Above high normal Amorphous Sediment [facility] ([facility]) ID Date Data Source [id number] 09/15/2020 06:00:00 PM EDT [place] ([facility]) Name Value Range Interpretation Code Description Data Analia rce(s) Supporting Document(s) ID Date Data Source [id number] 09/15/2020 06:00:00 PM EDT [place] ([facility]) Name Value Range Interpretation Code Description Data Analia rce(s) Supporting Document(s) appearance, urine turbid clear Above high normal Appearance, Urine [facility] ([facility]) pH,urine 5.0 units 5.0-9.0 pH,urine [facility] ([facility]) color, urine yellow yellow Color, Urine [facility] (No [facility]) protein, urine auto negative negative Protein, Urine A uto [facility] ([facility]) specific gravity urine auto 1.002-1.035 Specifi c [place] Urine Auto [facility] ([facility]) glucose, urine (UA) auto negative negative Glucose, Ur ine (UA) Auto [facility] ([facility]) ketone, urine auto negative negative Ketone, Urine Aut o [facility] ([facility]) urobilinogen, urine auto 0.2 mg/dL 0.0-2.0 Urobilinoge n, Urine Auto [facility] ([facility]) bilirubin, urine auto negative negative Bilirubin, Uri ne Auto [facility] ([facility]) nitrite, urine auto negative negative Nitrite, Urine A uto [facility] ([facility]) blood, urine blood negative negative Blood, Urine Bloo d [facility] ([facility]) leukocyte esterase, urine auto negative negative Leukocyte Esterase, Urine Auto [facility] ([facility]) WBC, urine auto 0 /hpf 0-3 WBC, Urine Auto ATHE NA ([facility]) RBC, urine auto 0 /hpf 0-3 RBC, Urine Auto ATHE NA ([facility]) squamous epithelial cell ur AU 0 /hpf 0-6 Squam ous Epithelial Cell Ur AU [facility] ([facility]) yeast like cell urine auto large none Above high nor mal Yeast like Cell Urine Auto [facility] ([facility]) bacteria, urine auto negative negative Bacteria, Urine Auto [facility] ([facility]) mucus, urine small negative Mucus, Urine [facility] ([facility]) hyaline cast, urine auto 0 /lpf 0-1 Hyaline Shaheed t, Urine Auto [facility] ([facility]) amorphous sediment small negative Above high normal Amorphous Sediment [facility] ([facility]) ID Date Data Source [id number] 09/15/2020 06:00:00 PM EDT [facility] ([facility]) Name Value Range Interpretation Code Description Data Analia rce(s) Supporting Document(s) ID Date Data Source [id number] 09/15/2020 06:00:00 PM EDT [facility] ([facility]) Name Value Range Interpretation Code Description Data Analia rce(s) Supporting Document(s) appearance, urine turbid clear Above high normal Appearance, Urine [facility] ([facility]) color, urine yellow yellow Color, Urine [facility] ([facility] specific gravity urine auto 1.002-1.035 Specifi c [place] Urine Auto [facility] ([facility]) protein, urine auto negative negative Protein, Urine A uto [facility] ([facility]) pH,urine 5.0 units 5.0-9.0 pH,urine [facility] ([facility]) ketone, urine auto negative negative Ketone, Urine Aut o [facility] ([facility]) glucose, urine (UA) auto negative negative Glucose, Ur ine (UA) Auto [facility] ([facility]) urobilinogen, urine auto 0.2 mg/dL 0.0-2.0 Urobilinoge n, Urine Auto [facility] ([facility]) bilirubin, urine auto negative negative Bilirubin, Uri ne Auto [facility] ([facility]) WBC, urine auto 0 /hpf 0-3 WBC, Urine Auto ATHE NA ([facility]) nitrite, urine auto negative negative Nitrite, Urine A uto [facility] ([facility]) leukocyte esterase, urine auto negative negative Leukocyte Esterase, Urine Auto [facility] ([facility]) blood, urine blood negative negative Blood, Urine Bloo d [facility] ([facility]) bacteria, urine auto negative negative Bacteria, Urine Auto [facility] ([facility]) RBC, urine auto 0 /hpf 0-3 RBC, Urine Auto ATHE NA ([facility]) yeast like cell urine auto large none Above high nor mal Yeast like Cell Urine Auto [facility] ([facility]) mucus, urine small negative Mucus, Urine [facility] ([facility]) squamous epithelial cell ur AU 0 /hpf 0-6 Squam ous Epithelial Cell Ur AU [facility] ([facility]) amorphous sediment small negative Above high normal Amorphous Sediment [facility] ([facility]) hyaline cast, urine auto 0 /lpf 0-1 Hyaline Shaheed t, Urine Auto [facility] ([facility]) ID Date Data Source [id number] 09/15/2020 06:00:00 PM EDT [place] ([facility]) Name Value Range Interpretation Code Description Data Analia rce(s) Supporting Document(s) ID Date Data Source [id number] 09/15/2020 06:00:00 PM EDT [place] ([facility]) Name Value Range Interpretation Code Description Data Analia rce(s) Supporting Document(s) appearance, urine turbid clear Above high normal Appearance, Urine [facility] ([facility]) color, urine yellow yellow Color, Urine [facility] (No [facility]) protein, urine auto negative negative Protein, Urine A pao [place] ([facility]) specific gravity urine auto 1.002-1.035 Specifi c [place] Urine Auto [facility] ([facility]) pH,urine 5.0 units 5.0-9.0 pH,urine [facility] ([facility]) ketone, urine auto negative negative Ketone, Urine Aut o [place] ([facility]) glucose, urine (UA) auto negative negative Glucose, Ur ine (UA) Auto [facility] ([facility]) urobilinogen, urine auto 0.2 mg/dL 0.0-2.0 Urobilinoge n, Urine Auto [facility] ([facility]) nitrite, urine auto negative negative Nitrite, Urine A uto [facility] ([facility]) blood, urine blood negative negative Blood, Urine Bloo d [place] ([facility]) bilirubin, urine auto negative negative Bilirubin, Uri ne Auto [facility] ([facility]) leukocyte esterase, urine auto negative negative Leukocyte Esterase, Urine Auto [facility] ([facility]) RBC, urine auto 0 /hpf 0-3 RBC, Urine Auto ATHE NA ([facility]) WBC, urine auto 0 /hpf 0-3 WBC, Urine Auto ATHE NA ([facility]) bacteria, urine auto negative negative Bacteria, Urine Auto [facility] ([facility]) squamous epithelial cell ur AU 0 /hpf 0-6 Squam ous Epithelial Cell Ur AU [facility] ([facility]) mucus, urine small negative Mucus, Urine [facility] ([facility]) hyaline cast, urine auto 0 /lpf 0-1 Hyaline Shaheed t, Urine Auto [facility] ([facility]) yeast like cell urine auto large none Above high nor mal Yeast like Cell Urine Auto [facility] ([facility]) amorphous sediment small negative Above high normal Amorphous Sediment [facility] ([facility]) ID Date Data Source [id number] 09/15/2020 06:00:00 PM EDT [facility] ([facility]) Name Value Range Interpretation Code Description Data Analia rce(s) Supporting Document(s) ID Date Data Source [id number] 09/15/2020 06:00:00 PM EDT [facility] ([facility]) Name Value Range Interpretation Code Description Data Analia rce(s) Supporting Document(s) appearance, urine turbid clear Above high normal Appearance, Urine [facility] ([facility]) pH,urine 5.0 units 5.0-9.0 pH,urine [facility] ([facility]) color, urine yellow yellow Color, Urine [facility] ([facility]) specific gravity urine auto 1.002-1.035 Specifi c [place] Urine Auto [facility] ([facility]) protein, urine auto negative negative Protein, Urine A uto [facility] ([facility]) nitrite, urine auto negative negative Nitrite, Urine A uto [facility] ([facility]) glucose, urine (UA) auto negative negative Glucose, Ur ine (UA) Auto [facility] ([facility]) bilirubin, urine auto negative negative Bilirubin, Uri ne Auto [facility] ([facility]) ketone, urine auto negative negative Ketone, Urine Aut o [facility] ([facility]) urobilinogen, urine auto 0.2 mg/dL 0.0-2.0 Urobilinoge n, Urine Auto [facility] ([facility]) RBC, urine auto 0 /hpf 0-3 RBC, Urine Auto ATHE NA ([facility]) leukocyte esterase, urine auto negative negative Leukocyte Esterase, Urine Auto [facility] ([facility]) blood, urine blood negative negative Blood, Urine Bloo d [facility] ([facility]) WBC, urine auto 0 /hpf 0-3 WBC, Urine Auto ATHE NA ([facility]) yeast like cell urine auto large none Above high nor mal Yeast like Cell Urine Auto [facility] ([facility]) hyaline cast, urine auto 0 /lpf 0-1 Hyaline Shaheed t, Urine Auto [facility] ([facility]) bacteria, urine auto negative negative Bacteria, Urine Auto [facility] ([facility]) squamous epithelial cell ur AU 0 /hpf 0-6 Squam ous Epithelial Cell Ur AU [facility] ([facility]) mucus, urine small negative Mucus, Urine [facility] (No [facility]) amorphous sediment small negative Above high normal Amorphous Sediment [facility] ([facility]) ID Date Data Source [id number] 09/15/2020 06:00:00 PM EDT [facility] ([facility]) Name Value Range Interpretation Code Description Data Analia rce(s) Supporting Document(s) ID Date Data Source [id number] 09/15/2020 06:00:00 PM EDT [facility] ([facility]) Name Value Range Interpretation Code Description Data Analia rce(s) Supporting Document(s) appearance, urine turbid clear Above high normal Appearance, Urine [facility] ([facility]) specific gravity urine auto 1.002-1.035 Specifi c [place] Urine Auto [facility] ([facility]) pH,urine 5.0 units 5.0-9.0 pH,urine [facility] ([facility]) color, urine yellow yellow Color, Urine [facility] (No [facility]) protein, urine auto negative negative Protein, Urine A uto [facility] ([facility]) glucose, urine (UA) auto negative negative Glucose, Ur ine (UA) Auto [facility] ([facility]) ketone, urine auto negative negative Ketone, Urine Aut o [facility] ([facility]) leukocyte esterase, urine auto negative negative Leukocyte Esterase, Urine Auto [facility] ([facility]) nitrite, urine auto negative negative Nitrite, Urine A uto [facility] ([facility]) urobilinogen, urine auto 0.2 mg/dL 0.0-2.0 Urobilinoge n, Urine Auto [facility] ([facility]) bilirubin, urine auto negative negative Bilirubin, Uri ne Auto [facility] ([facility]) blood, urine blood negative negative Blood, Urine Bloo d [facility] ([facility]) RBC, urine auto 0 /hpf 0-3 RBC, Urine Auto ATHE NA ([facility]) WBC, urine auto 0 /hpf 0-3 WBC, Urine Auto ATHE NA ([facility]) bacteria, urine auto negative negative Bacteria, Urine Auto [facility] ([facility]) squamous epithelial cell ur AU 0 /hpf 0-6 Squam ous Epithelial Cell Ur AU [facility] ([facility]) hyaline cast, urine auto 0 /lpf 0-1 Hyaline Shaheed t, Urine Auto [facility] ([facility]) yeast like cell urine auto large none Above high nor mal Yeast like Cell Urine Auto [facility] ([facility]) mucus, urine small negative Mucus, Urine [facility] (No [facility]) amorphous sediment small negative Above high normal Amorphous Sediment [facility] ([facility]) ID Date Data Source [id number] 09/15/2020 06:00:00 PM EDT [place] ([facility]) Name Value Range Interpretation Code Description Data Analia rce(s) Supporting Document(s) ID Date Data Source [id number] 09/15/2020 06:00:00 PM EDT [facility] ([facility]) Name Value Range Interpretation Code Description Data Analia rce(s) Supporting Document(s) appearance, urine turbid clear Above high normal Appearance, Urine [facility] ([facility]) pH,urine 5.0 units 5.0-9.0 pH,urine [facility] ([facility]) color, urine yellow yellow Color, Urine [facility] ([facility]) protein, urine auto negative negative Protein, Urine A uto [facility] ([facility]) specific gravity urine auto 1.002-1.035 Specifi c [place] Urine Auto [facility] ([facility]) bilirubin, urine auto negative negative Bilirubin, Uri ne Auto [facility] ([facility]) glucose, urine (UA) auto negative negative Glucose, Ur ine (UA) Auto [facility] ([facility]) urobilinogen, urine auto 0.2 mg/dL 0.0-2.0 Urobilinoge n, Urine Auto [facility] ([facility]) ketone, urine auto negative negative Ketone, Urine Aut o [facility] ([facility]) nitrite, urine auto negative negative Nitrite, Urine A uto [facility] ([facility]) WBC, urine auto 0 /hpf 0-3 WBC, Urine Auto ATHE NA ([facility]) leukocyte esterase, urine auto negative negative Leukocyte Esterase, Urine Auto [facility] ([facility]) blood, urine blood negative negative Blood, Urine Bloo d [facility] ([facility]) yeast like cell urine auto large none Above high nor mal Yeast like Cell Urine Auto [facility] ([facility]) squamous epithelial cell ur AU 0 /hpf 0-6 Squam ous Epithelial Cell Ur AU [facility] ([facility]) RBC, urine auto 0 /hpf 0-3 RBC, Urine Auto ATHE NA ([facility]) bacteria, urine auto negative negative Bacteria, Urine Auto [facility] ([facility]) hyaline cast, urine auto 0 /lpf 0-1 Hyaline Shaheed t, Urine Auto [facility] ([facility]) mucus, urine small negative Mucus, Urine [facility] ([facility]) amorphous sediment small negative Above high normal Amorphous Sediment [facility] ([facility]) ID Date Data Source [id number] 09/15/2020 06:00:00 PM EDT [facility] ([facility]) Name Value Range Interpretation Code Description Data Analia rce(s) Supporting Document(s) ID Date Data Source [id number] 09/15/2020 06:00:00 PM EDT [facility] ([facility]) Name Value Range Interpretation Code Description Data Analia rce(s) Supporting Document(s) pH,urine 5.0 units 5.0-9.0 pH,urine [facility] ([facility]) appearance, urine turbid clear Above high normal Appearance, Urine [facility] ([facility]) specific gravity urine auto 1.002-1.035 Specifi c [place] Urine Auto [facility] ([facility]) color, urine yellow yellow Color, Urine [facility] ([facility]) urobilinogen, urine auto 0.2 mg/dL 0.0-2.0 Urobilinoge n, Urine Auto [facility] ([facility]) ketone, urine auto negative negative Ketone, Urine Aut o [facility] ([facility]) protein, urine auto negative negative Protein, Urine A uto [facility] ([facility]) glucose, urine (UA) auto negative negative Glucose, Ur ine (UA) Auto [facility] ([facility]) nitrite, urine auto negative negative Nitrite, Urine A pao [facility] ([facility]) bilirubin, urine auto negative negative Bilirubin, Uri ne Auto [facility] ([facility]) blood, urine blood negative negative Blood, Urine Bloo d [facility] ([facility]) leukocyte esterase, urine auto negative negative Leukocyte Esterase, Urine Auto [facility] ([facility]) WBC, urine auto 0 /hpf 0-3 WBC, Urine Auto ATHE NA ([facility]) squamous epithelial cell ur AU 0 /hpf 0-6 Squam ous Epithelial Cell Ur AU [facility] ([facility]) bacteria, urine auto negative negative Bacteria, Urine Auto [facility] ([facility]) yeast like cell urine auto large none Above high nor mal Yeast like Cell Urine Auto [facility] ([facility]) mucus, urine small negative Mucus, Urine [facility] (No [facility]) RBC, urine auto 0 /hpf 0-3 RBC, Urine Auto ATHE NA ([facility]) hyaline cast, urine auto 0 /lpf 0-1 Hyaline Shaheed t, Urine Auto [facility] ([facility]) amorphous sediment small negative Above high normal Amorphous Sediment [facility] ([facility]) ID Date Data Source [id number] 09/15/2020 06:00:00 PM EDT [facility] ([facility]) Name Value Range Interpretation Code Description Data Analia rce(s) Supporting Document(s) ID Date Data Source [id number] 09/15/2020 06:00:00 PM EDT EZ[facility] ([facility]) Name Value Range Interpretation Code Description Data Analia rce(s) Supporting Document(s) appearance, urine turbid clear Above high normal Appearance, Urine ZEKE ([facility]) protein, urine auto negative negative Protein, Urine A uto ZEKE ([facility]) pH,urine 5.0 units 5.0-9.0 pH,urine ZEKE ([facility]) specific gravity urine auto 1.002-1.035 Specifi c [place] Urine Auto ZEKE ([facility]) color, urine yellow yellow Color, Urine ZEKE (No [facility]) ketone, urine auto negative negative Ketone, Urine Aut o ZEKE ([facility]) glucose, urine (UA) auto negative negative Glucose, Ur ine (UA) Auto ZEKE ([facility]) leukocyte esterase, urine auto negative negative Leukocyte Esterase, Urine Auto ZEKE ([facility]) bilirubin, urine auto negative negative Bilirubin, Uri ne Auto ZEKE ([facility]) nitrite, urine auto negative negative Nitrite, Urine A uto ZEKE ([facility]) urobilinogen, urine auto 0.2 mg/dL 0.0-2.0 Urobilinoge n, Urine Auto ZEKE ([facility]) blood, urine blood negative negative Blood, Urine Bloo d ZEKE ([facility]) RBC, urine auto 0 /hpf 0-3 RBC, Urine Auto ATHE NA ([facility]) squamous epithelial cell ur AU 0 /hpf 0-6 Squam ous Epithelial Cell Ur AU ZEKE ([facility]) yeast like cell urine auto large none Above high nor mal Yeast like Cell Urine Auto ZEKE ([facility]) WBC, urine auto 0 /hpf 0-3 WBC, Urine Auto ATHE NA ([facility]) bacteria, urine auto negative negative Bacteria, Urine Auto ZEKE ([facility]) mucus, urine small negative Mucus, Urine ZEKE (No [facility]) hyaline cast, urine auto 0 /lpf 0-1 Hyaline Shaheed t, Urine Auto ZEKE ([facility]) amorphous sediment small negative Above high normal Amorphous Sediment ZEKE ([facility]) Procedure Social History Code Duration Value Status Description Data Source(s ) Smoking 10/06/2020 12:00:00 AM EST Never Smoker completed Never S moker eCW1 ([facility]) Smoking 10/06/2020 12:00:00 AM EST Never Smoker completed Never S moker eCW1 ([facility]) Vital Signs ID Date Data Source UNK Name Value Range Interpretation Code Description Data Source(s) Diastolic blood pressure 69 mm[Hg] 69 mm[Hg] ZEKE ([facility]) Body height 69 [in_i] 69 [in_i] ZEKE ([facility]) Body mass index (BMI) [Ratio] 26.7 kg/m2 26.7 k g/m2 ZEKE ([facility]) Systolic blood pressure 114 mm[Hg] 114 mm[Hg] A THENA ([facility]) Body weight 2888 [oz_av] 2888 [oz_av] ZEKE ([facility]) Body height 69 [in_i] 69 [in_i] ZEKE ([facility]) Body height 69 [in_i] 69 [in_i] ZEKE ([facility]) Body height 69 [in_i] 69 [in_i] ZEKE ([facility]) Body height 69 [in_i] 69 [in_i] ZEKE ([facility]) Body height 69 [in_i] 69 [in_i] ZEKE ([facility]) Body weight 170 [lb_av] 170 [lb_av] eCW1 ([facility]) Body height 69 [in_i] 69 [in_i] eCW1 ([facility]) Body mass index (BMI) [Ratio] 25.10 kg/m2 25.10 kg/m2 eCW1 ([facility]) Heart rate 83 /min 83 /min eCW1 ([facility]) Respiratory rate 18 /min 18 /min eCW1 ([facility]) Body temperature 96.6 [degF] 96.6 [degF] eCW1 ( [facility]) Systolic blood pressure 138 mm[Hg] 138 mm[Hg] e CW1 ([facility]) Diastolic blood pressure 94 mm[Hg] 94 mm[Hg] eCW1 ([facility]) Diastolic blood pressure 75 mm[Hg] 75 mm[Hg] ZEKE ([facility]) Body height 69 [in_i] 69 [in_i] ZEKE ([facility]) Body mass index (BMI) [Ratio] 24.4 kg/m2 24.4 k g/m2 ZEKE ([facility]) Systolic blood pressure 109 mm[Hg] 109 mm[Hg] A THEN ([facility]) Body weight 2642 [oz_av] 2642 [oz_av] ZEKE ([facility]) Diastolic blood pressure 75 mm[Hg] 75 mm[Hg] ZEKE ([facility]) Body height 69 [in_i] 69 [in_i] ZEKE ([facility]) Body mass index (BMI) [Ratio] 24.4 kg/m2 24.4 k g/m2 ZEKE ([facility]) Systolic blood pressure 109 mm[Hg] 109 mm[Hg] A [facility] ([facility]) Body weight 2642 [oz_av] 2642 [oz_av] ZEKE ([facility]) Diastolic blood pressure 75 mm[Hg] 75 mm[Hg] ZEKE ([facility]) Diastolic blood pressure 75 mm[Hg] 75 mm[Hg] ZEKE ([facility]) Body height 69 [in_i] 69 [in_i] ZEKE ([facility]) Body mass index (BMI) [Ratio] 24.4 kg/m2 24.4 k g/m2 ZEKE ([facility]) Systolic blood pressure 109 mm[Hg] 109 mm[Hg] A [facility]) Body weight 2642 [oz_av] 2642 [oz_av] ZEKE ([facility]) Body height 69 [in_i] 69 [in_i] ZEKE ([facility]) Body mass index (BMI) [Ratio] 24.4 kg/m2 24.4 k g/m2 ZEKE ([facility]) Systolic blood pressure 109 mm[Hg] 109 mm[Hg] A THENA ([facility]) Body weight 2642 [oz_av] 2642 [oz_av] ZEKE ([facility]) Diastolic blood pressure 75 mm[Hg] 75 mm[Hg] ZEKE ([facility]) Body height 69 [in_i] 69 [in_i] ZEKE ([facility]) Body mass index (BMI) [Ratio] 24.4 kg/m2 24.4 k g/m2 ZEKE ([facility]) Systolic blood pressure 109 mm[Hg] 109 mm[Hg] A THENA ([facility]) Body weight 2642 [oz_av] 2642 [oz_av] ZEKE ([facility]) Diastolic blood pressure 75 mm[Hg] 75 mm[Hg] ZEKE ([facility]) Body height 69 [in_i] 69 [in_i] ZEKE ([facility]) Body mass index (BMI) [Ratio] 24.4 kg/m2 24.4 k g/m2 ZEKE ([facility]) Systolic blood pressure 109 mm[Hg] 109 mm[Hg] A THENA ([facility]) Body weight 2642 [oz_av] 2642 [oz_av] ZEKE ([facility]) Diastolic blood pressure 75 mm[Hg] 75 mm[Hg] ZEKE ([facility]) Body height 69 [in_i] 69 [in_i] ZEKE ([facility]) Body mass index (BMI) [Ratio] 24.4 kg/m2 24.4 k g/m2 ZEKE ([facility]) Systolic blood pressure 109 mm[Hg] 109 mm[Hg] A THENA ([facility]) Body weight 2642 [oz_av] 2642 [oz_av] ZEKE ([facility]) Diastolic blood pressure 75 mm[Hg] 75 mm[Hg] ZEKE ([facility]) Body height 69 [in_i] 69 [in_i] ZEKE ([facility]) Body mass index (BMI) [Ratio] 24.4 kg/m2 24.4 k g/m2 ZEKE ([facility]) Systolic blood pressure 109 mm[Hg] 109 mm[Hg] A THENA ([facility]) Body weight 2642 [oz_av] 2642 [oz_av] ZEKE ([facility]) Diastolic blood pressure 75 mm[Hg] 75 mm[Hg] ZEKE ([facility]) Body height 69 [in_i] 69 [in_i] ZEKE ([facility]) Body mass index (BMI) [Ratio] 24.4 kg/m2 24.4 k g/m2 ZEKE ([facility]) Systolic blood pressure 109 mm[Hg] 109 mm[Hg] A THENA ([facility]) Body weight 2642 [oz_av] 2642 [oz_av] ZEKE ([facility]) Diastolic blood pressure 77 mm[Hg] 77 mm[Hg] ZEKE ([facility]) Body height 69 [in_i] 69 [in_i] ZEKE ([facility]) Body mass index (BMI) [Ratio] 25.9 kg/m2 25.9 k g/m2 ZEKE ([facility]) Systolic blood pressure 122 mm[Hg] 122 mm[Hg] A THENA ([facility]) Body weight 2802 [oz_av] 2802 [oz_av] ZEKE ([facility]) Diastolic blood pressure 77 mm[Hg] 77 mm[Hg] ZEKE ([facility]) Body height 69 [in_i] 69 [in_i] ZEKE ([facility]) Body mass index (BMI) [Ratio] 25.9 kg/m2 25.9 k g/m2 ZEKE ([facility]) Systolic blood pressure 122 mm[Hg] 122 mm[Hg] A THENA ([facility]) Body weight 2802 [oz_av] 2802 [oz_av] ZEKE ([facility]) Diastolic blood pressure 77 mm[Hg] 77 mm[Hg] ZEKE ([facility]) Body height 69 [in_i] 69 [in_i] ZEKE ([facility]) Body mass index (BMI) [Ratio] 25.9 kg/m2 25.9 k g/m2 ZEKE ([facility]) Systolic blood pressure 122 mm[Hg] 122 mm[Hg] A THENA ([facility]) Body weight 2802 [oz_av] 2802 [oz_av] ZEKE ([facility]) Diastolic blood pressure 77 mm[Hg] 77 mm[Hg] ZEKE ([facility]) Body height 69 [in_i] 69 [in_i] ZEKE ([facility]) Body mass index (BMI) [Ratio] 25.9 kg/m2 25.9 k g/m2 ZEKE ([facility]) Systolic blood pressure 122 mm[Hg] 122 mm[Hg] A THENA ([facility]) Body weight 2802 [oz_av] 2802 [oz_av] ZEKE ([facility]) Diastolic blood pressure 77 mm[Hg] 77 mm[Hg] ZEKE ([facility]) Body height 69 [in_i] 69 [in_i] ZEKE ([facility]) Body mass index (BMI) [Ratio] 25.9 kg/m2 25.9 k g/m2 ZEKE ([facility]) Systolic blood pressure 122 mm[Hg] 122 mm[Hg] A THENA ([facility]) Body weight 2802 [oz_av] 2802 [oz_av] ZEKE ([facility]) Diastolic blood pressure 77 mm[Hg] 77 mm[Hg] ZEKE ([facility]) Body height 69 [in_i] 69 [in_i] ZEKE ([facility]) Body mass index (BMI) [Ratio] 25.9 kg/m2 25.9 k g/m2 ZEKE ([facility]) Systolic blood pressure 122 mm[Hg] 122 mm[Hg] A THENA ([facility]) Body weight 2802 [oz_av] 2802 [oz_av] ZEKE ([facility]) Diastolic blood pressure 77 mm[Hg] 77 mm[Hg] ZEKE ([facility]) Body height 69 [in_i] 69 [in_i] ZEKE ([facility]) Body mass index (BMI) [Ratio] 25.9 kg/m2 25.9 k g/m2 ZEKE ([facility]) Systolic blood pressure 122 mm[Hg] 122 mm[Hg] A THENA ([facility]) Body weight 2802 [oz_av] 2802 [oz_av] ZEKE ([facility]) Diastolic blood pressure 77 mm[Hg] 77 mm[Hg] ZEKE ([facility]) Body height 69 [in_i] 69 [in_i] ZEKE ([facility]) Body mass index (BMI) [Ratio] 25.9 kg/m2 25.9 k g/m2 ZEKE ([facility]) Systolic blood pressure 122 mm[Hg] 122 mm[Hg] A THENA ([facility]) Body weight 2802 [oz_av] 2802 [oz_av] ZEKE ([facility]) Diastolic blood pressure 77 mm[Hg] 77 mm[Hg] ZEKE ([facility]) Body height 69 [in_i] 69 [in_i] ZEKE ([facility]) Body mass index (BMI) [Ratio] 25.9 kg/m2 25.9 k g/m2 ZEKE ([facility]) Systolic blood pressure 122 mm[Hg] 122 mm[Hg] A THENA ([facility]) Body weight 2802 [oz_av] 2802 [oz_av] ZEKE ([facility]) Diastolic blood pressure 77 mm[Hg] 77 mm[Hg] ZEKE ([facility]) Body height 69 [in_i] 69 [in_i] ZEKE ([facility]) Body mass index (BMI) [Ratio] 25.9 kg/m2 25.9 k g/m2 ZEKE ([facility]) Systolic blood pressure 122 mm[Hg] 122 mm[Hg] A THENA ([facility]) Body weight 2802 [oz_av] 2802 [oz_av] ZEKE ([facility]) Patient Treatment Plan of Care Planned Activity Planned Date Details Description Data Source (s) POLYETHYLENE GLYCOL 3350 142 MG/ML Oral Solution ZEKE ([facility]) Docusate Sodium 100 MG Oral Capsule [DOK] ZEKE ([facility]) Ciprofloxacin 500 MG Oral Tablet ZEKE ([facility]) Cephalexin 500 MG Oral Capsule ZEKE ([facility]) Ciprofloxacin 500 MG Oral Tablet ZEKE ([facility]) Cephalexin 500 MG Oral Capsule ZEKE ([facility]) Ciprofloxacin 500 MG Oral Tablet ZEKE ([facility]) Cephalexin 500 MG Oral Capsule ZEKE ([facility]) Ciprofloxacin 500 MG Oral Tablet ZEKE ([facility]) Cephalexin 500 MG Oral Capsule ZEKE ([facility]) Ciprofloxacin 500 MG Oral Tablet ZEKE ([facility]) Cephalexin 500 MG Oral Capsule ZEKE ([facility]) Ciprofloxacin 500 MG Oral Tablet ZEKE ([facility]) Cephalexin 500 MG Oral Capsule ZEKE ([facility]) Ciprofloxacin 500 MG Oral Tablet ZEKE ([facility]) Cephalexin 500 MG Oral Capsule ZEKE ([facility]) Ciprofloxacin 500 MG Oral Tablet ZEKE ([facility]) Cephalexin 500 MG Oral Capsule ZEKE ([facility]) Ciprofloxacin 500 MG Oral Tablet ZEKE ([facility]) Cephalexin 500 MG Oral Capsule ZEKE ([facility]) Cephalexin 500 MG Oral Capsule ZEKE ([facility])
[2021-10-04 12:54] LABS: HEMOGLOBIN 14.8 g/dl (13.5-17.5); MEAN CORPUSCULAR HGB CONC 32.9 g/dl (32.0-36.5); MEAN CORPUSCULAR VOLUME 94.1 fl (80.0-96.0); PLATELET COUNT, AUTOMATED 187 10^3/uL (150-450); RED BLOOD COUNT 4.78 10^6/uL (4.30-6.10); WHITE BLOOD COUNT 5.7 10^3/uL (4.0-10.0)
--- NOTE | 2021-10-04 12:57 | REP ---
INDICATION: trauma chest pain. COMPARISON: None. TECHNIQUE: Portable FINDINGS: The technique utilized in obtaining the radiograph has magnified the cardiac silhouette and accentuated the interstitial markings. The superior mediastinal structures are midline. The cardiac silhouette is unremarkable in size, shape, and position. The diaphragmatic surfaces of the lungs are regular, and the costophrenic angles are clear. The pulmonary smiley are clear. The imaged osseous structures are intact. IMPRESSION: There is no acute cardiopulmonary disease. <Electronically signed by Stefano Valerio > 10/04/21 [id number]
[2021-10-04 13:23] LABS: ALT/SGPT 154 U/L (12-78); BILIRUBIN,TOTAL 0.5 MG/DL (0.2-1.0); BLOOD UREA NITROGEN 11 MG/DL (7-18); CALCIUM LEVEL 8.6 MG/DL (8.5-10.1); CARBON DIOXIDE LEVEL 24 MEQ/L (21-32); CHLORIDE LEVEL 115 MEQ/L (98-107); CPK CREATINE PHOSPHOKINASE 61 U/L (39-308); CREATININE FOR GFR 0.79 MG/DL (0.70-1.30); GLOMERULAR FILTRATION RATE > 60.0 (>56); GLUCOSE, FASTING 82 MG/DL (70-100); MB/CK RELATIVE INDEX 3.28 (< OR =4); SODIUM LEVEL 145 MEQ/L (136-145); TOTAL PROTEIN 6.4 GM/DL (6.4-8.2); TROPONIN I < 0.02 NG/ML (< 0.10)
[2021-10-04 13:28] LABS: ACETAMINOPHEN LEVEL < 2.0 UG/ML (10.0-30.0); ALT/SGPT 156 U/L (12-78); BILIRUBIN,DIRECT < 0.1 MG/DL (0.0-0.2); BILIRUBIN,TOTAL 0.3 MG/DL (0.2-1.0); BLOOD UREA NITROGEN 11 MG/DL (7-18); CALCIUM LEVEL 8.7 MG/DL (8.5-10.1); CARBON DIOXIDE LEVEL 24 MEQ/L (21-32); CHLORIDE LEVEL 115 MEQ/L (98-107); CREATININE FOR GFR 0.78 MG/DL (0.70-1.30); ETHYL ALCOHOL (ETHANOL) < 0.003 % (0.000-0.010); GLOMERULAR FILTRATION RATE > 60.0 (>56); GLUCOSE, FASTING 84 MG/DL (70-100); RSV AMPLIFICATION NEGATIVE (NEGATIVE); SALICYLATE LEVEL < 1.7 MG/DL (5.0-30.0); SODIUM LEVEL 145 MEQ/L (136-145); TOTAL PROTEIN 6.5 GM/DL (6.4-8.2)
[2021-10-04] MEDS ORDERED: ISOVUE-370 76% 100ML VIAL As Ordered ONE (13:45)
[2021-10-04 14:08] LABS: AMPHETAMINES LEVEL URINE POSITIVE (NEGATIVE); BARBITURATES URINE NEGATIVE (NEGATIVE); BENZODIAZEPINES URINE NEGATIVE (NEGATIVE); CANNABINOIDS URINE POSITIVE (NEGATIVE); COCAINE METABOLITE URINE NEGATIVE (NEGATIVE); METHADONE URINE NEGATIVE (NEGATIVE); OPIATES URINE NEGATIVE (NEGATIVE); PHENCYCLIDINE URINE NEGATIVE (NEGATIVE)
--- NOTE | 2021-10-04 14:13 | REP ---
INDICATION: painful inspiration, elevated d-dimer COMPARISON: None. TECHNIQUE: CT angiography after the intravenous administration of 75 cc Isovue 370 attention pulmonary arteries. FINDINGS: There is excellent visualization of the pulmonary arterial vasculature. No focal filling defects are present that would be considered consistent with acute pulmonary emboli. There is ascending thoracic aortic ectasia. The maximal AP dimension of the aortic root is 4.2 cm. There is no mediastinal or hilar adenopathy. There are no pleural or pericardial effusions. The imaged upper abdomen and imaged osseous structures are within normal limits. Evaluation of the lung smiley shows no abnormal nodules, masses, or opacities. IMPRESSION: 1. There is no evidence of a pulmonary embolism. 2. Thoracic aortic ectasia as described above. <Electronically signed by Stefano Valerio > 10/04/21 [id number]
--- NOTE | 2021-10-04 14:18 | REP ---
INDICATION: abd pain. COMPARISON: None. TECHNIQUE: Standard helical technique after the intravenous administration of 75 cc Isovue 370 FINDINGS: The liver, gallbladder, spleen, pancreas, adrenal glands, and right kidney are unremarkable. Arising from the interpolar region of the left kidney there is a 3.9 cm sized cyst. The abdominal aorta and para-aortic regions are within normal limits. The bowel loops and the mesenteries are within normal limits. There is no evidence of a mass or adenopathy. There is no free fluid or free air. Left upper quadrant postoperative changes are noted likely secondary to bariatric surgery. Bone window technique throughout the exam shows the osseous structures to be within normal limits. IMPRESSION: Simple left renal cyst. The examination is otherwise unremarkable. <Electronically signed by Stefano Valerio > 10/04/21 [id number]
[2021-10-04 15:41] LABS: BASO # 0.1 10^3/uL (0.0-0.2); BASO % 0.9 % (0.0-1.0); EOS # 0.1 10^3/uL (0.0-0.5); EOS % 1.7 % (0.0-3.0); LYMPH % 17.2 % (24.0-44.0); MONO # 0.5 10^3/uL (0.0-0.8); MONO % 8.9 % (2.0-8.0); NEUTROPHILS # 4.2 10^3/uL (1.5-8.5); NEUTROPHILS % 71.1 % (36.0-66.0)
[2021-10-04 16:01] VITALS: BP 136/88
--- NOTE | 2021-10-05 06:33 | ECGEPIP ---
[facility] - ED Test Date: 2021-10-04 Pat Name: JEFFERSON BARONE Department: Room: - Gender: Male [employer]: SKYE : 1970 Requested By: Pily Lozada PA-C Order Number: [id number] Reading MD: Chandu Bass Measurements Intervals [place] Rate: 77 P: 34 WA: 140 QRS: 10 QRSD: 86 T: 32 QT: 386 QTc: 436 Interpretive Statements Normal sinus rhythm Nonspecific ST T wave changes No prior ECG for comparison Electronically Signed on 10-05-2021 6:32:58 EST by Chandu Bass
== END 2021-10-04 19:17 | disposition home or self-care (01) ==
LOC: M ED 10:32
DX: R07.89 Other chest pain (principal); N28.1 Cyst of kidney, acquired; Z91.51 Personal history of suicidal behavior; Z77.098 Contact with and (suspected) exposure to other hazardous, chiefly nonmedicinal, chemicals
CPT/HCPCS: 36415; 71045; 71275; 74177; 80053; 80143; 80307; 82077; 82550; 82553; 84443; 85027; 85379; 87631; 93005; 93041; 99285; Q9967

== ENCOUNTER 2022-09-01 09:18 | Observation (INO) | payer MEDICAID ==
[~2022-09-01] VITALS: Ht 177.8 cm; Wt 82.9 kg
[2022-09-01 10:49] LABS: BASO % 0.5 % (0.0-1.0); EOS # 0.1 10^3/uL (0.0-0.5); EOS % 1.9 % (0.0-3.0); HEMATOCRIT 45.5 % (42.0-52.0); HEMOGLOBIN 14.9 g/dl (13.5-17.5); LYMPH # 1.2 10^3/uL (1.5-5.0); LYMPH % 18.5 % (24.0-44.0); MEAN CORPUSCULAR HEMOGLOBIN 31.5 pg (27.0-33.0); MEAN CORPUSCULAR HGB CONC 32.7 g/dl (32.0-36.5); MEAN CORPUSCULAR VOLUME 96.2 fl (80.0-96.0); MONO # 0.7 10^3/uL (0.0-0.8); MONO % 10.2 % (2.0-8.0); NEUTROPHILS # 4.4 10^3/uL (1.5-8.5); NEUTROPHILS % 68.6 % (36.0-66.0); PLATELET COUNT, AUTOMATED 197 10^3/uL (150-450); RED BLOOD COUNT 4.73 10^6/uL (4.30-6.10); WHITE BLOOD COUNT 6.4 10^3/uL (4.0-10.0)
[2022-09-01 11:06] LABS: INR 0.86; PROTHROMBIN TIME 12.1 SECONDS (12.7-14.5)
[2022-09-01 11:07] LABS: PARTIAL THROMBOPLASTIN TIME 35.6 SECONDS (25.9-37.0)
[2022-09-01 11:34] LABS: BLOOD UREA NITROGEN 13 MG/DL (7-18); CALCIUM LEVEL 9.1 MG/DL (8.5-10.1); CARBON DIOXIDE LEVEL 29 MEQ/L (21-32); CHLORIDE LEVEL 109 MEQ/L (98-107); CREATININE FOR GFR 0.92 MG/DL (0.70-1.30); GLOMERULAR FILTRATION RATE > 60.0 (>56); GLUCOSE, FASTING 91 MG/DL (70-100); SODIUM LEVEL 142 MEQ/L (136-145)
[2022-09-01 11:52] LABS: RSV AMPLIFICATION NEGATIVE (NEGATIVE)
[2022-09-01] MEDS ORDERED: ACETAMINOPHEN 325 MG TAB PO ONE (12:35)
[2022-09-01 13:19] LABS: AMPHETAMINES LEVEL URINE NEGATIVE (NEGATIVE); BARBITURATES URINE NEGATIVE (NEGATIVE); BENZODIAZEPINES URINE NEGATIVE (NEGATIVE); CANNABINOIDS URINE NEGATIVE (NEGATIVE); COCAINE METABOLITE URINE NEGATIVE (NEGATIVE); METHADONE URINE NEGATIVE (NEGATIVE); OPIATES URINE NEGATIVE (NEGATIVE); PHENCYCLIDINE URINE NEGATIVE (NEGATIVE)
[2022-09-01] MEDS ORDERED: HOME MED LIST COMPLETE! XX SCH (14:05)
[2022-09-01] MEDS ORDERED: ATORVASTATIN 20 MG TAB PO ONE (14:40)
[2022-09-01] MEDS ORDERED: ASPIRIN 325 MG TAB PO ONE (14:40)
[2022-09-01] MEDS ORDERED: ACETAMINOPHEN TAB 650MG DOSE (2X325MG) PO PRN (14:50)
[2022-09-01 19:31] LABS: CHOLESTEROL RISK RATIO 2.963 (<5)
[2022-09-01] MEDS ORDERED: RAMELTEON 8 MG TAB (ROZEREM) PO ONE (22:00)
[2022-09-01] MEDS: HEPARIN SOD (PORCINE) 5000UNITS/ML 1ML VIAL/SYRINGE SC SCH (22:09)
[2022-09-02] MEDS ORDERED: ASPI81TAEC PO (08:14)
[2022-09-02] MEDS ORDERED: ATOR80TA59 PO (08:14)
[2022-09-02 08:33] LABS: BLOOD UREA NITROGEN 17 MG/DL (7-18); CALCIUM LEVEL 8.6 MG/DL (8.5-10.1); CARBON DIOXIDE LEVEL 27 MEQ/L (21-32); CHLORIDE LEVEL 110 MEQ/L (98-107); CREATININE FOR GFR 0.89 MG/DL (0.70-1.30); GLOMERULAR FILTRATION RATE > 60.0 (>56); GLUCOSE, FASTING 108 MG/DL (70-100); POTASSIUM SERUM 4.1 MEQ/L (3.5-5.1); SODIUM LEVEL 143 MEQ/L (136-145)
[2022-09-02] MEDS ORDERED: ATORVASTATIN 20 MG TAB PO SCH (09:00)
[2022-09-02] MEDS ORDERED: ASPIRIN 81MG ENTERIC TABLET PO SCH (09:00)
[2022-09-02] MEDS: HEPARIN SOD (PORCINE) 5000UNITS/ML 1ML VIAL/SYRINGE SC SCH (09:04)
[2022-09-02 14:40] VITALS: BP 113/72
== END 2022-09-02 14:43 | disposition hospice, home (50) ==
LOC: M ED 09:18 → M ED INP 09:19
PROVIDERS: ADMIT Internal Medicine; ATTEND Internal Medicine
DX: G45.9 Transient cerebral ischemic attack, unspecified (principal); E78.1 Pure hyperglyceridemia; F19.10 Other psychoactive substance abuse, uncomplicated; Z98.84 Bariatric surgery status; R53.1 Weakness; R06.02 Shortness of breath; R51.9 Headache, unspecified; M54.2 Cervicalgia; Z79.899 Other long term (current) drug therapy; Z79.82 Long term (current) use of aspirin; Z87.891 Personal history of nicotine dependence
CPT/HCPCS: 36415; 70450; 70544; 70551; 71045; 72141; 76376; 80048; 80061; 80307; 82607; 82746; 85025; 85610; 85730; 87631; 93005; 93041; 93306; 93356; 93880; 94760; 96372; 97116; 97161; 97165; 99285; J1644

== ENCOUNTER 2022-12-28 11:05 | Emergency (ER) | payer MEDICAID ==
[~2022-12-28] VITALS: Ht 175.3 cm; Wt 81.5 kg
[~2022-12-28 11:05] MED LIST changes: +ASPI81TAEC PO; +ATOR80TA59 PO
[2022-12-28 11:06] VITALS: BP 124/78
[2022-12-28 11:49] LABS: BASO % 0.6 % (0.0-1.0); EOS # 0.1 10^3/uL (0.0-0.5); EOS % 1.4 % (0.0-3.0); HEMATOCRIT 44.9 % (42.0-52.0); HEMOGLOBIN 14.5 g/dl (13.5-17.5); LYMPH % 15.6 % (24.0-44.0); MEAN CORPUSCULAR HGB CONC 32.3 g/dl (32.0-36.5); MEAN CORPUSCULAR VOLUME 96.1 fl (80.0-96.0); MONO # 0.6 10^3/uL (0.0-0.8); MONO % 8.9 % (2.0-8.0); NEUTROPHILS # 4.7 10^3/uL (1.5-8.5); NEUTROPHILS % 73.3 % (36.0-66.0); PLATELET COUNT, AUTOMATED 229 10^3/uL (150-450); RED BLOOD COUNT 4.67 10^6/uL (4.30-6.10); WHITE BLOOD COUNT 6.4 10^3/uL (4.0-10.0)
[2022-12-28 12:20] LABS: LIPASE 52 U/L (12-53)
[2022-12-28 12:22] LABS: ALBUMIN 3.6 G/DL (3.2-5.2); ALKALINE PHOSPHATASE 102 U/L (46-116); ALT/SGPT 162 U/L (7.0-40); AST/SGOT 69 U/L (<34); BILIRUBIN,DIRECT 0.1 MG/DL (<0.4); BILIRUBIN,TOTAL 0.4 MG/DL (0.3-1.2); BLOOD UREA NITROGEN 23 MG/DL (9-23); CALCIUM LEVEL 8.7 MG/DL (8.5-10.1); CARBON DIOXIDE LEVEL 23 MMOL/L (20-31); CHLORIDE LEVEL 110 MMOL/L (98-107); CK-MB VALUE MASS 1.4 NG/ML (<3.6); CREATININE FOR GFR 0.86 MG/DL (0.70-1.30); GLOMERULAR FILTRATION RATE > 60.0 (>56); GLUCOSE, FASTING 90 MG/DL (60-100); POTASSIUM SERUM 4.7 MMOL/L (3.5-5.1); SODIUM LEVEL 140 MMOL/L (136-145); TOTAL PROTEIN 6.9 G/DL (5.7-8.2)
[2022-12-28 12:24] LABS: FREE T4 0.84 NG/DL (0.89-1.76); THYROID STIMULATING HORMONE 0.748 uIU/ML (0.55-4.78)
[2022-12-28 12:54] LABS: CPK CREATINE PHOSPHOKINASE 106 U/L (46-171); MB/CK RELATIVE INDEX 1.32 (< OR =4)
== END 2022-12-28 14:55 | disposition left against medical advice (07) ==
LOC: M ED 11:05
DX: Z53.21 Procedure and treatment not carried out due to patient leaving prior to being seen by health care provider (principal)

== ENCOUNTER → 2023-01-05 | Outpatient (CLI) | payer MEDICAID ==
[2023-01-06 05:47] LABS: HEPATITIS B SURFACE ANTIGEN NEGATIVE (NEGATIVE)
[2023-01-06 06:00] LABS: HIV 1&2 SCREEN CENTAUR NEGATIVE (NEGATIVE)
[2023-01-08 23:10] LABS: HEPATITIS A IgG TOTAL Negative (Negative); HEPATITIS C QUANTITATION 106000 IU/mL (.); HEPATITIS C VIRUS GENOTYPE 3 (.); HSV TYPE II IgG SPECIFIC <0.91 index (0.00-0.90)
== END ==
LOC: M PLALAB 08:54
PROVIDERS: ATTEND Internal Medicine Infectious Disease
DX: B18.2 Chronic viral hepatitis C (principal); K14.8 Other diseases of tongue

== ENCOUNTER 2023-05-06 21:05 | Emergency (ER) | payer MEDICAID, MEDICARE ==
[~2023-05-06] VITALS: Ht 177.8 cm; Wt 79.3 kg
[2023-05-07] MEDS ORDERED: NORCO, ANEXSIA 5/325MG TABLET (HYDROcodone/ACETAMINOPHEN) PO ONE (01:20)
[2023-05-07 01:34] VITALS: BP 141/90; TEMP 98.1; O2SAT 99
[2023-05-07] MEDS ORDERED: TRAM50TA2 PO (01:43)
== END 2023-05-07 02:09 | disposition home or self-care (01) ==
LOC: EDBD 21:05 → M ED 21:05
DX: S82.001A Unspecified fracture of right patella, initial encounter for closed fracture (principal); S20.212A Contusion of left front wall of thorax, initial encounter; W01.0XXA Fall on same level from slipping, tripping and stumbling without subsequent striking against object, initial encounter; Y92.410 Unspecified street and highway as the place of occurrence of the external cause; Y93.01 Activity, walking, marching and hiking; Y99.8 Other external cause status; E11.9 Type 2 diabetes mellitus without complications; R56.9 Unspecified convulsions; Z87.442 Personal history of urinary calculi; Z86.73 Personal history of transient ischemic attack (TIA), and cerebral infarction without residual deficits; F32.A Depression, unspecified; Z98.84 Bariatric surgery status; Z79.82 Long term (current) use of aspirin; Z79.899 Other long term (current) drug therapy

== ENCOUNTER → 2023-05-11 | Outpatient (CLI) | payer MEDICAID, MEDICARE ==
[~2023-05-11] MED LIST changes: +TRAM50TA2 PO
== END ==
LOC: M SOG 09:10
PROVIDERS: ATTEND Student in an Organized Health Care Education/Training Program
DX: M25.561 Pain in right knee (principal); Z53.8 Procedure and treatment not carried out for other reasons

== ENCOUNTER → 2023-05-11 | Outpatient (CLI) | payer MEDICARE, MEDICAID | LOC: M SOG 12:18 | PROVIDERS: ATTEND Student in an Organized Health Care Education/Training Program | DX: M25.561 Pain in right knee (principal) ==

== ENCOUNTER → 2023-06-08 | Outpatient (CLI) | payer MEDICARE, MEDICAID | LOC: M SOG 08:49 | PROVIDERS: ATTEND Student in an Organized Health Care Education/Training Program | DX: S82.034A Nondisplaced transverse fracture of right patella, initial encounter for closed fracture (principal); Z53.8 Procedure and treatment not carried out for other reasons ==

== ENCOUNTER → 2023-06-29 | Outpatient (CLI) | payer MEDICARE, MEDICAID | LOC: M SOG 07:52 | PROVIDERS: ATTEND Student in an Organized Health Care Education/Training Program | DX: S82.034A Nondisplaced transverse fracture of right patella, initial encounter for closed fracture (principal); Z53.8 Procedure and treatment not carried out for other reasons ==

== ENCOUNTER 2024-04-05 11:43 | Emergency (ER) | payer MEDICAID, MEDICARE, SELFPAY ==
[~2024-04-05] VITALS: Ht 175.3 cm; Wt 74.4 kg
[2024-04-05] MEDS ORDERED: ESCITALOPRAM (12:05)
[2024-04-05] MEDS ORDERED: HYDR-4429 (12:05)
[2024-04-05] MEDS ORDERED: PENI500T (12:05)
[2024-04-05] MEDS ORDERED: BUPR150T12 (12:05)
[2024-04-05] MEDS ORDERED: KCL 10MEQ/100ML SWI (KRUN) 10 MEQ in IV 1 EA IV ONE ×2 (13:30→13:35)
[2024-04-05 13:37] LABS: HEMATOCRIT 38.3 % (42.0-52.0); HEMOGLOBIN 13.2 g/dl (13.5-17.5); MEAN CORPUSCULAR HGB CONC 34.5 g/dl (32.0-36.5); PLATELET COUNT, AUTOMATED 267 10^3/uL (150-450); WHITE BLOOD COUNT 9.1 10^3/uL (4.0-10.0)
[2024-04-05 13:39] LABS: INR 1.01; PARTIAL THROMBOPLASTIN TIME 33.5 SECONDS (24.8-34.2)
[2024-04-05] MEDS: POTASSIUM CHLORIDE 10MEQ SR TABLET PO ONE (13:52)
[2024-04-05] MEDS: ONDANSETRON 4MG ORAL DISINTEGRATING TAB PO ONE (13:52)
[2024-04-05] MEDS: NS 1,000 ML IV ONE (13:53)
[2024-04-05] MEDS: KCL 10MEQ/100ML SWI (KRUN) 10 MEQ in IV 1 EA IV SCH (13:53)
[2024-04-05 13:54] LABS: LIPASE 69 U/L (12-53)
[2024-04-05 14:09] LABS: ATYPICAL LYMPH 5 % (0-5); LYMPHOCYTES 17 % (16-44); MONOCYTES 13 % (0-5); NEUTROPHILS 57 % (28-66)
[2024-04-05 14:12] LABS: PLATELET ESTIMATE NORMAL (NORMAL)
[2024-04-05 14:13] LABS: ANISOCYTOSIS 1+; TOXIC GRANULATION 1+
[2024-04-05 14:56] LABS: ALBUMIN 2.4 G/DL (3.2-5.2); ALKALINE PHOSPHATASE 108 U/L (46-116); ALT/SGPT 40 U/L (7.0-40); AST/SGOT 22 U/L (<34); BILIRUBIN,DIRECT 0.1 MG/DL (<0.4); BILIRUBIN,TOTAL 0.3 MG/DL (0.3-1.2); BLOOD UREA NITROGEN 13 MG/DL (9-23); CALCIUM LEVEL 8.4 MG/DL (8.5-10.1); CARBON DIOXIDE LEVEL 24 MMOL/L (20-31); CHLORIDE LEVEL 111 MMOL/L (98-107); CREATININE FOR GFR 0.92 MG/DL (0.70-1.30); GLOMERULAR FILTRATION RATE > 60.0 (>56); GLUCOSE, FASTING 77 MG/DL (60-100); MAGNESIUM LEVEL 2.2 MG/DL (1.8-2.4); POTASSIUM SERUM 2.8 MMOL/L (3.5-5.1); SODIUM LEVEL 143 MMOL/L (136-145); TOTAL PROTEIN 5.6 G/DL (5.7-8.2)
[2024-04-05 15:11] LABS: LYMPH % 22.5 % (24.0-44.0); NEUTROPHILS % 60.3 % (36.0-66.0)
[2024-04-05 15:12] LABS: BASO # 0.1 10^3/uL (0.0-0.2); BASO % 0.9 % (0.0-1.0); EOS # 0.1 10^3/uL (0.0-0.5); EOS % 1.1 % (0.0-3.0); MONO # 1.3 10^3/uL (0.0-0.8); MONO % 14.1 % (2.0-8.0); NEUTROPHILS # 5.5 10^3/uL (1.5-8.5)
[2024-04-05] MEDS: LevoFLOXacin IV 500 MG in IV 1 EA IV ONE (16:20)
[2024-04-05] MEDS: ONDANSETRON 4MG 2ML VIAL IV ONE (16:41)
[2024-04-05] MEDS ORDERED: LEVO1TAB39 PO (17:09)
[2024-04-05] MEDS ORDERED: POTA-151 PO (17:11)
[2024-04-05 18:05] VITALS: BP 123/66; TEMP 99.2; O2SAT 98
== END 2024-04-05 17:17 | disposition home or self-care (01) ==
LOC: M ED 11:43
DX: A09 Infectious gastroenteritis and colitis, unspecified (principal); E87.6 Hypokalemia; R19.7 Diarrhea, unspecified; R00.1 Bradycardia, unspecified; F17.290 Nicotine dependence, other tobacco product, uncomplicated; Z79.1 Long term (current) use of non-steroidal anti-inflammatories (NSAID); Z79.899 Other long term (current) drug therapy
CPT/HCPCS: 74176; 80047; 80048; 80076; 81001; 83690; 83735; 85025; 85610; 85730; 86850; 86900; 86901; 87507; 93005; 96365; 96366; 99284; J1956